=== PATIENT | male | born 1945 | race Caucasian/White ===

== ENCOUNTER 2016-05-18 18:22 | Inpatient (IN) ==
[2016-05-18 19:02] LABS: Eosinophils % 0.5 % (0.00-10.9); Hematocrit 24.4 VOL% (42.0-52.0); Hemoglobin 8.3 GM/DL (14.0-18.0); Immature Granulocytes % 1.9 %; Immature Granulocytes Absolute 0.08 #; Lymphocytes # 1.9 10*3/uL (1.4-4.0); Lymphocytes % 45.3 % (21.2-54.2); Mean Corpuscular Hemoglobin 33 PG (27-34); Mean Corpuscular Volume 96.4 FL (87-102); Mean Platelet Volume 9.2 FL (9.6-12.0); Monocytes % 24.8 % (1.7-12.7); Neutrophils # 1.1 10*3/uL (1.4-7.4); Neutrophils % 27.5 % (38.7-73.9); Platelet Count 47 T/CUMM (130-400); Red Blood Count 2.53 MC/CUMM (3.8-5.5); Red Cell Distribution Width 14.7 % (9.3-17.3); White Blood Count 4.1 T/CUMM (4-12)
--- NOTE | 2016-05-18 19:18 | XRay Report ---
XR chest 2V Indication: Shortness of breath. Chest 2 views: Comparison 05/10/2016. Pleural-parenchymal scarring at the left pulmonary apex, expansile changes in the posterior left fourth rib, scarring at the base of the left lung, generally clear right lung and normal heart size are all stable and no new infiltrates are identified. Impression: No significant change from 05/10/2016. Chronic scarring left upper lobe with expansile changes left posterior fourth rib. PROCEDURE INTERPRETED AT [facility] DEPARTMENT OF RADIOLOGY Final Report Signed by: Wayne Puga M.D.
[2016-05-18 19:22] LABS: Albumin 2.8 G/DL (3.4-5.0); Bilirubin,Total 0.4 MG/DL (0.2-1.0); Calcium 8.3 MG/DL (8.5-10.1); Osmolality,Calculated 291.4 MOS/KG (273-304); Total Protein 5.6 G/DL (6.4-8.3)
[2016-05-18 19:27] LABS: Troponin I Only 0.067 NG/ML (0.00-0.045)
[2016-05-18 20:08] LABS: Apearance,Urine CLEAR (Clear); Bacteria,Urine Occasional /HPF (Few); Bilirubin,Urine Negative (Negative); Blood, Urine Large mg/dL (Negative); Glucose,Urine (UA) Negative (Negative); Ketones,Urine Negative (Negative); Nitrite,Urine Negative (Negative); Protein,Urine 100 MG/DL; RBC,Urine 242 /HPF (0-4); Urine Color Yellow (Yellow); Urine Specific Gravity 1.013 (1.001-1.035); Urine Urobilinogen < 2.0 EU/DL (0.2-1.0); WBC,Urine 3 /HPF (0-6)
[2016-05-18] MEDS ORDERED: chlorproMAZINE INJ 50 MG in SODIUM CHLORIDE 0.9% 100 ML IV PRN (20:11)
[2016-05-18] MEDS ORDERED: MYLANTA/LIDO VISC 2:1 300 ML BOTTLE SWISH/SPIT PRN (20:11)
[2016-05-18] MEDS ORDERED: ACETAMINOPHEN 325 MG TABLET PO PRN (20:11)
[2016-05-18] MEDS ORDERED: ALUMINUM/MAGNES/SIMETH MAX STR 30 ML UDCUP PO PRN (20:11)
[2016-05-18] MEDS ORDERED: traMADol 50 MG TABLET PO PRN (20:11)
[2016-05-18] MEDS ORDERED: TEMAZEPAM 7.5 MG CAPSULE PO PRN (20:11)
[2016-05-18] MEDS ORDERED: PROMETHAZINE INJ 25 MG in SODIUM CHLORIDE 0.9% 50 ML IV PRN (20:11)
[2016-05-18] MEDS ORDERED: LACTULOSE 20 GM/30 ML UDCUP PO PRN (20:11)
[2016-05-18] MEDS ORDERED: chlorproMAZINE INJ 25 MG in SODIUM CHLORIDE 0.9% 100 ML IV PRN (20:11)
[2016-05-18] MEDS ORDERED: diphenhydrAMINE CAP 25 MG CAPSULE PO PRN (20:11)
[2016-05-18] MEDS ORDERED: chlorproMAZINE 25 MG TABLET PO PRN (20:11)
[2016-05-18] MEDS ORDERED: ALPRAZolam 0.25 MG TABLET PO PRN (20:11)
[2016-05-18] MEDS ORDERED: BENZTROPINE 2 MG/2 ML AMP IV PRN (20:11)
[2016-05-18] MEDS ORDERED: guaiFENesin 200 MG/10 ML UDCUP PO PRN (20:11)
[2016-05-18] MEDS ORDERED: MAGNESIUM HYDROXIDE SUSP 30 ML UDCUP PO PRN (20:11)
[2016-05-18] MEDS ORDERED: MYLANTA/LIDO VISC 2:1 300 ML BOTTLE SWISH/SWAL PRN (20:11)
[2016-05-18] MEDS ORDERED: LOPERAMIDE 2 MG CAPSULE PO PRN ×2 (20:11)
--- NOTE | 2016-05-18 20:11 | Emergency Department Note ---
Wilmar Vigil Brittany, am scribing for, and in the presence of, Lam Romero MD 18:56. Nick Vigil Doug C, MD, personally performed the services described in this documentation, ascribed by Cecy Urabn in my presence, and it is both accurate and complete . Arrival - Arrival Chief Complaint: Shortness of Breath Stated Complaint: SOB ED Nursing Triage Note: Pt c/o SOB, Chills, and lower ext swelling x 1 wk. Pt denies cough and was seen here last wk for same complaint. Mode of Arrival: Wheelchair Limitations: No Limitations Source: Patient, RN Notes Reviewed Time Seen by Provider: 05/18/16 18:53 - History of Present Illness HPI Narrative: Patient is a 71-year-old white male who presents emergency room complaining of increasing shortness of breath for the last 2 weeks. Patient states this really started after he received a transfusion and some IV fluid while here in the hospital. He has been short of breath ever since. Patient denies any chest pain or palpitations but is having dyspnea on exertion. He states he has a cough but it is nonproductive and is not had any fever associated with it. He does have a history of multiple myeloma and thyroid cancer. Has not had any hemoptysis or wheezing. He denies any pain in his neck shoulders or arms. Allergies/Adverse Reactions: Allergies Allergy/AdvReac Type Severity Reaction Status Date / Time No Known Allergies Allergy Verified 09/05/14 10:41 Home Medications: Home Medications Medication Instructions Recorded Confirmed Type Aspirin [Ecotrin] 81 mg PO DAILY 09/05/14 05/18/16 History Calcium Carbonate/Vitamin D3 1 each PO DAILY 09/05/14 05/18/16 History [Os-Natanael 500+D3 Caplet] Dexamethasone [Dexamethasone Tab] 4 mg PO DAILY PRN 09/05/14 05/18/16 History HYDROcodone/ACETAMIN 10-325 [[place] 1 tablet PO Q4H PRN 09/05/14 05/18/16 History 10-325] Insulin Lispro [HumaLOG] 2 unit SUBCUT ACHS PRN 09/05/14 05/18/16 History Levothyroxine Sodium 200 mcg PO DAILY 09/05/14 05/18/16 History Lisinopril/Hydrochlorothiazide 1 each PO DAILY 09/05/14 05/18/16 History [Lisinopril-Hctz 10-12.5 mg Tab] Saxagliptin HCl/Metformin HCl 1 each PO BID W/MEALS 09/05/14 05/18/16 History [Kombiglyze Xr 2.5-1,000 mg Tab] Tamsulosin [Flomax] 0.4 mg PO DAILY 09/05/14 05/18/16 History glyBURIDE [Diabeta] 10 mg PO BID W/MEALS 09/05/14 05/18/16 History Furosemide Tab [Lasix Tab] 20 mg PO DAILY #10 tablet 05/11/16 05/18/16 Rx Review of System - Review of System 12 point system: reviewed and no additional remarkable complaints except as stated - Review of System Constitutional: Absent: chills, fever Eyes: Absent: vision change Head/Ears/Nose/Throat: Absent: nasal drainage, sore throat Respiratory: Present: respiratory distress Cardiovascular: Absent: chest pain, palpitations Gastrointestinal: Absent: abdominal pain, nausea, vomiting, diarrhea, constipation Genitourinary male: Absent: urgency, dysuria, frequency Musculoskeletal: Absent: arm pain, back pain, leg pain, neck pain Skin: Absent: rash Neurological: Absent: headache Psychiatric: Absent: anxiety, depression Hematological/Lymphatic: Absent: easy bleeding, easy bruising Medical,Surgical,& Family Hx - Medical History Cardio: History of: Hypertension Neurology: No history of: Seizures HEENT: History of: Oral Cancer (thyroid ca) Endocrine: History of: Diabetes Mellitus (IDDM) Rheumatology: History of;: Rheumatoid Arthritis Genitourinary: History of: Prostate Problems (takes flomax) Gastrointestinal: History of: GI Problems (hernia repair) - Surgical History Cardiac Surgeries: Patient Denies: Femoral-Popliteal Bypass Graft, Cardiac Catheterization, Cardiac Surgery, Carotid Endarterectomy, Internal Defibrillator, Vascular Access Devices Neurologic Surgeries: Patient denies: Neurologic Surgery HEENT Surgeries: Patient denies: Carotid Endarterectomy, Thyroid Surgery Abdominal Surgeries: Surgical HX of: Abdominal Surgery (hernia repair X2) Patient denies: Splenectomy - Family History Family History: Reports;: Family Cancer (2 brothers prostate ca) - Social History Smoking Status: Never smoker Exam Vital Signs: Vital Signs Temperature 98.2 F 05/18/16 19:42 Pulse Rate 91 H 05/18/16 19:59 Respiratory Rate 20 05/18/16 19:59 Blood Pressure 137/69 05/18/16 19:59 O2 Sat by Pulse Oximetry 99 05/18/16 19:59 - General General appearance: alert, in no apparent distress - Head Head exam: Present: atraumatic, normocephalic, normal inspection - Eye Eye exam: Present: normal appearance, PERRL, EOMI - ENT ENT exam: Present: normal exam, normal oropharynx, mucous membranes moist - Neck Neck exam: Present: full ROM, trachea midline. Absent: normal inspection ( signs of radiation to the neck) - Chest Chest inspection: Present: normal inspection, symmetric chest wall rise - Respiratory Respiratory exam: Present: normal lung sounds bilaterally. Absent: rales, rhonchi, wheezes - Cardiovascular Cardiovascular exam: Present: regular rate, normal rhythm, normal heart sounds. Absent: murmur, rubs, gallop - Abdominal Exam Abdominal exam: Present: soft, normal bowel sounds. Absent: distention, tenderness - Extremities Exam Extremities exam: Present: normal inspection - Back Exam Back exam: Present: normal inspection - Neurological Exam Neurological exam: Present: alert, oriented X3, CN II-XII intact. Absent: motor sensory deficit - Psychiatric Psychiatric exam: Present: normal affect - Skin Skin exam: Present: warm, dry Course Course Narrative: Patient's clinical presentation, laboratory and radiographic findings were discussed with Dr. Sherman who will review these with Dr. Díaz. Results - Labs CBC & BMP: 05/18/16 18:51 05/18/16 18:51 Lab Results: I have reviewed the patients labs Labs: Laboratory Tests 05/18/16 18:51 WBC 4.1 RBC 2.53 L Hgb 8.3 L Hct 24.4 L MCV 96.4 MCH 33 MCHC 34.0 RDW 14.7 Plt Count 47 L MPV 9.2 L Neut % (Auto) 27.5 L Lymph % (Auto) 45.3 [place] % (Auto) 24.8 H Eos % (Auto) 0.5 Baso % (Auto) 0.0 Neut # (Auto) 1.1 L Lymph # (Auto) 1.9 [place] # (Auto) 1.0 H Eos # (Auto) 0.0 Baso # (Auto) 0.0 Immature Gran % 1.9 Nucleated RBC % 0.0 Immature Gran # 0.08 Nucleated RBCs # 0.00 - Diagnostic Findings Procedure: Chest x-ray: report reviewed by me (No significant change from . Chronic scarring left upper lobe with expansile changes left posterior fourth rib.) Disposition Clinical Impression: Symptomatic anemia Case discussed with: patient Disposition: Disch To Home/Self Care Condition: Stable Time of Disposition: 20:11
[2016-05-18] MEDS ORDERED: SODIUM CHLORIDE 0.9% 250 ML IV PRN (20:14)
[2016-05-18] MEDS: SODIUM CHLORIDE 0.9% 1,000 ML IV SCH (21:00)
[2016-05-18 21:09] LABS: Band Neutrophils 2 % (0-10); Lymphocytes 59 % (20-55); Segmented Neutrophils 36 % (50-85); Total Cells Counted 100
[2016-05-18 21:09] LABS: Magnesium 1.9 MG/DL (1.8-2.4); Uric Acid 10.6 MG/DL (3.5-7.2)
[2016-05-19] MEDS: FUROSEMIDE 20 MG/2 ML VIAL IV PRN ×2 (01:00→06:44)
--- NOTE | 2016-05-19 09:50 | EKG Report ---
Stationary ECG Study [facility] ER Test Date: 05/18/2016 6:39:24 PM Pat Name: MARIA A DASH Department: Room: 425 Gender: M Respiratory Tech: JOSE M : 1945 Requested by: Seven Castorena Order Number: [id number] Reading MD: CALEB RENO Intervals [place] Rate: 90 P: 67 FL: 198 QRS: 64 QRSD: 98 T: 83 QT: 349 QTc: 397 Interpretive Statements SINUS RHYTHM Electronically Signed On 05-20-16 16:41:21 CDT by CALEB RENO [email or web address]
[2016-05-19] MEDS: PANTOPRAZOLE 40 MG TABLET PO SCH (09:53)
[2016-05-19 11:01] LABS: Apearance,Urine CLEAR (Clear); Bilirubin,Urine Negative (Negative); Blood, Urine Large mg/dL (Negative); Glucose,Urine (UA) Negative (Negative); Ketones,Urine Negative (Negative); Mucus,Urine Occasional /LPF (Occasional); Nitrite,Urine Negative (Negative); Protein,Urine 30 MG/DL; RBC,Urine 77 /HPF (0-4); Squamous Epithelial Cell,Urine Occasional /HPF (0-10); Urine Color Straw (Yellow); Urine Specific Gravity 1.006 (1.001-1.035); Urine Urobilinogen < 2.0 EU/DL (0.2-1.0); WBC,Urine 4 /HPF (0-6)
[2016-05-19 11:09] LABS: Eosinophils % 0.4 % (0.00-10.9); Immature Granulocytes % 2.2 %; Lymphocytes # 1.9 10*3/uL (1.4-4.0); Lymphocytes % 41.8 % (21.2-54.2); Mean Corpuscular HGB Conc 33.3 GM/DL (32-36); Mean Corpuscular Hemoglobin 32 PG (27-34); Mean Corpuscular Volume 96.5 FL (87-102); Mean Platelet Volume 9.7 FL (9.6-12.0); Monocytes # 1.5 10*3/uL (0.11-0.8); Monocytes % 32.9 % (1.7-12.7); Neutrophils # 1.1 10*3/uL (1.4-7.4); Neutrophils % 22.7 % (38.7-73.9); Red Blood Count 3.11 MC/CUMM (3.8-5.5); Red Cell Distribution Width 15.5 % (9.3-17.3); White Blood Count 4.6 T/CUMM (4-12)
[2016-05-19 11:10] LABS: Platelet Count 44 T/CUMM (130-400)
--- NOTE | 2016-05-19 11:20 | Oncology Progress Note ---
Oncology Subjective PN Interval history: Patient admitted with anemia. Very complicated medical history of recurrent thyroid cancer and lambda light chain multiple myeloma. He is stable overnight with 2 units of red blood cells and an appropriate incremental increase in his hemoglobin. He denies any signs of bleeding. His lungs are clear on bilateral auscultation. Creatinine is noted at 3.0 which is unchanged when compared to May 07. Question any obstructive symptoms or need for renal ultrasound? We will move to room 430 for tomorrow's planned I-131 ablation Exam - Constitutional Vitals: Period Temp Pulse Resp BP Sys/Sommer Pulse Ox Last 24 Hr 88 F-98.7 F 86-108 16-20 93-139/47-95 97-98 Results - Labs CBC & BMP: 05/19/16 10:35 05/18/16 18:51
[2016-05-19 11:34] LABS: Band Neutrophils 2 % (0-10); Hypochromasia 1+; Lymphocytes 71 % (20-55); Ovalocytes Slight; Platelet Estimate Decreased; Segmented Neutrophils 22 % (50-85); Total Cells Counted 100
--- NOTE | 2016-05-20 07:16 | Oncology History&Physical ---
History of Present Illness History of present illness: Mr. Toribio is a 71 year old male with a history of lambda light chain disease with his most recent lambda free light chain level being 1079. He also has a history of metastatic thyroid cancer. Evidently this patient is also due a radioactive iodine treatment today. I have discussed his case with Dr. David Gastelum and was under the impression that the radioactive isotope that was going to be used would not be I-131. The phone system is down at my office. In addition, the fax machine here is broken. It is just been replaced. The electronic medical record system is not working and I cannot provide details of this patient's illness with this reason. I am going down the physical examination on this patient and I will fill in the rest of this later. System restored. He has had IgG lambda myeloma since June 28, 2013. 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 This is still clearly present on x-rays and was mentioned in x-ray reports during this hospital stay. Protein studies done May 02, 2016 included an M spike of 0.3 g/dL or 5.7% with an IgG level of 422. His kappa free light chain level was normal and his lambda free light chain level was 1079, having risen significantly in the last month. It was 662 mg/dL compared with 2016. His last dose of Zometa was March 12, 2016. I have just recently resumed chemotherapy on the patient using Velcade 2 mg IV and dexamethasone 40 mg IV weekly. He has not had parenteral chemotherapy for about 8 months. I am considering the addition of Adriamycin or Cytoxan at some point but not until after he has had his radioactive iodine therapy. Thyroid carcinoma: He has recurrence and progression of poorly differentiated thyroid carcinoma and recently saw Dr. David Gastelum who arranged for this radioactive iodine treatment which is his second 1. Past medical history: Allergies: No known allergies. Family history is negative for malignancies. Positive for diabetes mellitus in his grandfather and some type of blood disease in his mother Social history: He has never smoked cigarettes or used alcohol. Positive review of systems includes: Constitutional: Positive for fatigue and generalized weakness as well as weight loss. ENT review of systems is negative for significant disease. This excludes the thyroid cancer course. Pulmonary: Negative for asthma, emphysema or pneumonia, pleurisy or hemoptysis. Cardiovascular: Negative for coronary artery disease, chest pain, syncope or arrhythmias. GI: Negative for upper or lower GI bleeding, peptic ulcer disease, pancreatitis , liver disease, gallbladder disease or GI malignancies. : Positive for dysuria and the patient takes Flonase for this. He apparently has BPH. Musculoskeletal: Positive for muscle weakness and also positive for neck stiffness. Hematologic: Positive for cytopenias of all types including anemia and leukopenia. Neurologic: Positive for seizures, convulsions or paralysis. Physical examination: General: The patient is chronically ill-appearing but actually in no acute distress. Eyes: Normal lids and conjunctivae. ENT: His voice is clear and his trachea is midline. Oral mucosa is normal. His hearing is normal. Neck: He has several stony hard masses overlying the sternocleidomastoid and both the anterior and posterior cervical node system. His thyroid appears normal. Lungs: Breath sounds are normal without rubs, rales or rhonchi. There is symmetrical unlabored chest motion with respiration. Cardiovascular: His heart rhythm is regular without murmur, gallop or rub. There is no jugular venous distention, clubbing, cyanosis or edema. Abdomen: There are no abdominal masses, organomegaly, distention, tenderness or ascites. Musculoskeletal: There is no focal muscle atrophy or bone or joint deformity. Neurologic: Cranial nerves II through XII are intact. There are no focal neurologic deficits. Nodes: He has multiple large stony hard masses in the right cervical region as described under neck. Skin: No obvious skin lesions or rashes. Impression: #1: Recurrent metastatic thyroid carcinoma, poorly differentiated. #2: Light chain myeloma undergoing treatment #3: The patient is anemic and it is probably contributing to his dyspnea. #4: Chronic renal failure secondary to myeloma. We will proceed with radioactive iodine therapy. We are holding treatment of his myeloma for now. We will pick it back up later. Lab work today includes a white cell count of 4600 with a hemoglobin 10.0 and a platelet count of 44,000. The patient's platelet count has been low for some time. In addition, his hematocrit was 3.0 on admission. Home Medications Medication Instructions Recorded Confirmed Type Aspirin [Ecotrin] 81 mg PO DAILY 09/05/14 05/18/16 History Calcium Carbonate/Vitamin D3 1 each PO DAILY 09/05/14 05/18/16 History [Os-Natanael 500+D3 Caplet] Dexamethasone [Dexamethasone Tab] 4 mg PO DAILY PRN 09/05/14 05/18/16 History HYDROcodone/ACETAMIN 10-325 [[place] 1 tablet PO Q4H PRN 09/05/14 05/18/16 History 10-325] Insulin Lispro [HumaLOG] 2 unit SUBCUT ACHS PRN 09/05/14 05/18/16 History Levothyroxine Sodium 200 mcg PO DAILY 09/05/14 05/18/16 History Lisinopril/Hydrochlorothiazide 1 each PO DAILY 09/05/14 05/18/16 History [Lisinopril-Hctz 10-12.5 mg Tab] Saxagliptin HCl/Metformin HCl 1 each PO BID W/MEALS 09/05/14 05/18/16 History [Kombiglyze Xr 2.5-1,000 mg Tab] Tamsulosin [Flomax] 0.4 mg PO DAILY 09/05/14 05/18/16 History glyBURIDE [Diabeta] 10 mg PO BID W/MEALS 09/05/14 05/18/16 History Furosemide Tab [Lasix Tab] 20 mg PO DAILY #10 tablet 05/11/16 05/18/16 Rx Allergies Allergy/AdvReac Type Severity Reaction Status Date / Time No Known Allergies Allergy Verified 09/05/14 10:41 Medical,Surgical,& Family Hx - Medical History Cardio: History of: Hypertension Neurology: No history of: Seizures HEENT: History of: Oral Cancer (thyroid ca) Endocrine: History of: Diabetes Mellitus (IDDM) Rheumatology: History of;: Rheumatoid Arthritis Genitourinary: History of: Prostate Problems (takes flomax) Gastrointestinal: History of: GI Problems (hernia repair) Other: History of: Cancer (multiple myeloma, thyroid CA) - Surgical History Cardiac Surgeries: Patient Denies: Femoral-Popliteal Bypass Graft, Cardiac Catheterization, Cardiac Surgery, Carotid Endarterectomy, Internal Defibrillator, Vascular Access Devices Neurologic Surgeries: Patient denies: Neurologic Surgery HEENT Surgeries: Patient denies: Carotid Endarterectomy, Thyroid Surgery Abdominal Surgeries: Surgical HX of: Abdominal Surgery (hernia repair X2) Patient denies: Splenectomy - Family History Family History: Reports;: Family Cancer (2 brothers prostate ca) - Social History Smoking Status: Never smoker Frequency of Alcohol Use: None Type of Drug Use: None Exam - Constitutional Vitals: Period Temp Pulse Resp BP Sys/Sommer Pulse Ox Last 24 Hr 97.4 F-99.0 F 84-99 16-21 97-131/45-65 96-100 Results - Labs CBC & BMP: 05/19/16 10:35 05/18/16 18:51
[2016-05-20] MEDS: SODIUM CHLORIDE 0.9% 1,000 ML IV SCH (08:54)
[2016-05-20] MEDS: TAMSULOSIN 0.4 MG CAPSULE PO SCH (09:17)
[2016-05-20] MEDS: PANTOPRAZOLE 40 MG TABLET PO SCH (09:17)
[2016-05-21 05:40] LABS: Basophils % 0.2 % (0.0-0.8); Eosinophils % 0.2 % (0.00-10.9); Hematocrit 28.2 VOL% (42.0-52.0); Hemoglobin 9.2 GM/DL (14.0-18.0); Immature Granulocytes % 1.6 %; Immature Granulocytes Absolute 0.07 #; Lymphocytes # 1.7 10*3/uL (1.4-4.0); Lymphocytes % 40.5 % (21.2-54.2); Mean Corpuscular HGB Conc 32.6 GM/DL (32-36); Mean Corpuscular Hemoglobin 31 PG (27-34); Mean Corpuscular Volume 95.9 FL (87-102); Mean Platelet Volume 9.6 FL (9.6-12.0); Monocytes # 1.6 10*3/uL (0.11-0.8); Monocytes % 36.5 % (1.7-12.7); Neutrophils # 0.9 10*3/uL (1.4-7.4); Red Blood Count 2.94 MC/CUMM (3.8-5.5); Red Cell Distribution Width 15.2 % (9.3-17.3); White Blood Count 4.3 T/CUMM (4-12)
[2016-05-21 05:50] LABS: Platelet Count 41 T/CUMM (130-400)
[2016-05-21 06:12] LABS: Band Neutrophils 1 % (0-10); Lymphocytes 78 % (20-55); Segmented Neutrophils 18 % (50-85); Total Cells Counted 100
[2016-05-21 06:13] LABS: Atypical Lymphocytes Few; Hypochromasia 1+; Ovalocytes Slight; Platelet Estimate Decreased
[2016-05-21 06:18] LABS: Albumin 2.3 G/DL (3.4-5.0); Bilirubin,Total 0.8 MG/DL (0.2-1.0); Osmolality,Calculated 291.3 MOS/KG (273-304); Potassium 3.8 MMOL/L (3.5-5.1)
--- NOTE | 2016-05-21 07:17 | Oncology Progress Note ---
Oncology Subjective PN Interval history: Radioactive iodine treatment is on hold because patient has urinary retention and is feeling bad. Case discussed with Dr. Jose Romero. We will address the urinary retention before proceeding with radioactive iodine therapy. The patient has underlying myeloma as well as metastatic thyroid cancer. Exam - Constitutional Vitals: Period Temp Pulse Resp BP Sys/Sommer Pulse Ox Last 24 Hr 96.5 F-98.7 F 85-94 18-20 103-126/53-60 95-98 Results - Labs CBC & BMP: 05/21/16 05:09 05/21/16 05:09
--- NOTE | 2016-05-21 08:38 | Urology Consultation ---
Assessment and Plan - Time spent with patient Time spent with patient: Greater than 30 minutes (1) Prostate cancer Status: Acute Assessment and plan: Patient needs to be restaged but this is not the time to do that. I will get the records from Dr. Rodriguez. He apparently got lost to follow-up. Patient tells me that surgery was recommended but that was few years ago. Current Visit: Yes (2) Urinary retention Status: Acute Assessment and plan: He is on Flomax. They are cathing as needed. He is constipated we will clear that up and it should improve. Current Visit: Yes History of Present Illness - Data of Consult Patient: new to practice Consult date: 05/21/16 Requesting Physician: Wayne Ingram - Consult Narrative Reason for consult: Urinary retention History of present illness: Mr. Toribio is a 71 year old male who has multiple problems. He apparently has 3 distinct cancers. He is being admitted for radioactive thyroid treatment. But he also has multiple myeloma. After talking to him for 15-20 minutes he tells me history of having prostate cancer he apparently was diagnosed 5 years ago. This was a small volume cancer and I think he was on active surveillance. This progressed to the point where it was recommended for surgery but he did want to pursue that and then got lost to follow-up. The reason why I was asked to see difficulty urinating. He is constipated which obviously can contribute to that. He has been cath a few times a residuals a running 4-500 cc. I started Flomax last night and he is voiding somewhat better. But we need to improve the constipation. I will have the nurses give him Chronulac twice daily on schedule until he has a bowel movement. And this should improve. He needs to be restaged from prostate cancer standpoint. I am not going to order a PSA at this point because he has been catheterized and that will give us a false reading so we are going to wait and restage him at a later date. I will request the records from Dr. Beka Rodriguez. CC: Wayne Ingram MD - Home Medications and Allergies Home Medications: Home Medications Medication Instructions Recorded Confirmed Type Aspirin [Ecotrin] 81 mg PO DAILY 09/05/14 05/18/16 History Calcium Carbonate/Vitamin D3 1 each PO DAILY 09/05/14 05/18/16 History [Os-Natanael 500+D3 Caplet] Dexamethasone [Dexamethasone Tab] 4 mg PO DAILY PRN 09/05/14 05/18/16 History HYDROcodone/ACETAMIN 10-325 [[place] 1 tablet PO Q4H PRN 09/05/14 05/18/16 History 10-325] Insulin Lispro [HumaLOG] 2 unit SUBCUT ACHS PRN 09/05/14 05/18/16 History Levothyroxine Sodium 200 mcg PO DAILY 09/05/14 05/18/16 History Lisinopril/Hydrochlorothiazide 1 each PO DAILY 09/05/14 05/18/16 History [Lisinopril-Hctz 10-12.5 mg Tab] Saxagliptin HCl/Metformin HCl 1 each PO BID W/MEALS 09/05/14 05/18/16 History [Kombiglyze Xr 2.5-1,000 mg Tab] Tamsulosin [Flomax] 0.4 mg PO DAILY 09/05/14 05/18/16 History glyBURIDE [Diabeta] 10 mg PO BID W/MEALS 09/05/14 05/18/16 History Furosemide Tab [Lasix Tab] 20 mg PO DAILY #10 tablet 05/11/16 05/18/16 Rx Allergies/Adverse Reactions: Allergies Allergy/AdvReac Type Severity Reaction Status Date / Time No Known Allergies Allergy Verified 09/05/14 10:41 - Genitourinary Genitourinary: Present: difficulty urinating, dysuria, nocturia, urinary frequency. Absent: flank pain, hematuria, scrotal swelling, testicular mass, urinary incontinence Exam - Constitutional Vitals: Period Temp Pulse Resp BP Sys/Sommer Pulse Ox Last 24 Hr 98.0 F-98.7 F 87-94 18-20 103-122/53-56 95-98 - GI/Abdominal GI/Abdominal exam: Present: soft. Absent: distended, firm, guarding, tenderness , rebound - Genitourinary Genitourinary: scrotum without lesions, cysts, edema or rash, penis with no lesions or discharge, diffusely enlarged prostate without tenderness Results - Labs CBC & BMP: 05/21/16 05:09 05/21/16 05:09 Lab Results: I have reviewed the past 24 hour labs
[2016-05-21] MEDS: TAMSULOSIN 0.4 MG CAPSULE PO SCH (09:27)
[2016-05-21] MEDS: PANTOPRAZOLE 40 MG TABLET PO SCH (09:27)
[2016-05-21] MEDS: LACTULOSE 20 GM/30 ML UDCUP PO SCH ×2 (09:29→20:46)
[2016-05-21] MEDS: SODIUM CHLORIDE 0.9% 1,000 ML IV SCH ×3 (14:18→20:48)
[2016-05-22 05:34] LABS: Eosinophils % 0.2 % (0.00-10.9); Hemoglobin 9.3 GM/DL (14.0-18.0); Immature Granulocytes % 0.9 %; Immature Granulocytes Absolute 0.04 #; Lymphocytes % 45.2 % (21.2-54.2); Mean Corpuscular HGB Conc 33.2 GM/DL (32-36); Mean Corpuscular Hemoglobin 32 PG (27-34); Mean Corpuscular Volume 96.6 FL (87-102); Mean Platelet Volume 9.5 FL (9.6-12.0); Monocytes # 1.4 10*3/uL (0.11-0.8); Monocytes % 32.9 % (1.7-12.7); Neutrophils # 0.9 10*3/uL (1.4-7.4); Neutrophils % 20.8 % (38.7-73.9); Red Cell Distribution Width 15.1 % (9.3-17.3); White Blood Count 4.3 T/CUMM (4-12)
[2016-05-22 05:41] LABS: Platelet Count 33 T/CUMM (130-400)
[2016-05-22 05:57] LABS: Band Neutrophils 6 % (0-10); Elliptocytes Few; Eosinophils 1 % (0-10); Hypochromasia 1+; Lymphocytes 69 % (20-55); Platelet Estimate Decreased; Segmented Neutrophils 21 % (50-85); Total Cells Counted 100
[2016-05-22 05:58] LABS: Atypical Lymphocytes Few; Burr Cells Slight
[2016-05-22 06:12] LABS: Albumin 2.4 G/DL (3.4-5.0); Calcium 7.8 MG/DL (8.5-10.1); Osmolality,Calculated 289.4 MOS/KG (273-304); Potassium 3.5 MMOL/L (3.5-5.1)
--- NOTE | 2016-05-22 08:21 | Oncology Progress Note ---
Oncology Subjective PN Interval history: Patient with myeloma and metastatic thyroid cancer admitted with increasing pain. The patient was actually supposed to be receiving radioactive iodine therapy but we had to hold it because of urinary retention. I would like to go ahead and place a South catheter and get him treated with radioactive iodine. His blood work today includes a white cell count of 4300 with a hemoglobin of 9.3 and his platelet count is only 33,000. We have to have adequate drainage of his bladder for him to receive radioactive iodine. He has a large right neck mass that has been documented to be recurrent thyroid cancer. He has been off thyroid supplements for about 2 months. Exam - Constitutional Vitals: Period Temp Pulse Resp BP Sys/Sommer Pulse Ox Last 24 Hr 96.2 F-98.9 F 83-99 18-99 104-119/52-59 96-98 Results - Labs CBC & BMP: 05/22/16 04:53 05/22/16 04:53
[2016-05-22] MEDS: TAMSULOSIN 0.4 MG CAPSULE PO SCH ×2 (08:48→20:26)
[2016-05-22] MEDS: PANTOPRAZOLE 40 MG TABLET PO SCH (08:48)
[2016-05-22] MEDS: LACTULOSE 20 GM/30 ML UDCUP PO SCH ×2 (08:48→20:30)
--- NOTE | 2016-05-22 10:32 | Urology Progress Note ---
Assessment and Plan (1) Prostate cancer Status: Acute Assessment and plan: Patient needs to be restaged but this is not the time to do that. I will get the records from Dr. Rodriguez. He apparently got lost to follow-up. Patient tells me that surgery was recommended but that was few years ago. Current Visit: Yes (2) Urinary retention Status: Acute Assessment and plan: He is on Flomax. They are cathing as needed. He is constipated we will clear that up and it should improve. Current Visit: Yes Urology - PN: Subj Interval history: Patient is voiding very little. Residuals are 4-500 cc. He is going to be treated with radioactive iodine. Instead of cathing him and exposing the nursing personnel and is self to potential more radiation I recommend we place a South catheter for short period of time. I will also double his Flomax dose. Records from Dr. Perez's office are pending. Again I would not do a PSA at this time because it will be artificially elevated from the cathing. Exam - Constitutional Vitals: Period Temp Pulse Resp BP Sys/Sommer Pulse Ox Last 24 Hr 96.2 F-98.9 F 89-99 18-99 104-125/52-59 96-98 Results - Labs CBC & BMP: 05/22/16 04:53 05/22/16 04:53
--- NOTE | 2016-05-22 12:01 | Nuclear Medicine Report ---
Exam: Nuclear medicine therapy for thyroid cancer Date: May 22, 2016 Reason: Thyroid cancer Comparison: Nuclear medicine thyroid cancer whole body study May 13, 2016 Procedure: The procedure as well as risks and benefits were explained to the patient, and informed consent was obtained. The patient was orally administered 181 mCi of iodine-131 for treatment of residual thyroid cancer. The patient was admitted to the hospital for monitoring and will be discharged once radiation levels have reached an acceptable level. Post procedure instructions were discussed with the patient. Impression: 181 mCi of iodine-131 was administered orally for treatment of thyroid cancer. PROCEDURE INTERPRETED AT [facility] DEPARTMENT OF RADIOLOGY Final Report Signed by: Dr. Jorge Jackson
[2016-05-22 14:15] LABS: Apearance,Urine CLEAR (Clear); Bacteria,Urine Few /HPF (Few); Bilirubin,Urine Negative (Negative); Blood, Urine Small mg/dL (Negative); Glucose,Urine (UA) Negative (Negative); Hyaline Casts,Urine 1 /LPF (0-3); Ketones,Urine Negative (Negative); Nitrite,Urine Negative (Negative); Protein,Urine 100 MG/DL; RBC,Urine <1 /HPF (0-4); Urine Color Yellow (Yellow); Urine Specific Gravity 1.012 (1.001-1.035); Urine Urobilinogen < 2.0 EU/DL (0.2-1.0); WBC,Urine 1 /HPF (0-6)
[2016-05-22] MEDS: ONDANSETRON 4 MG/2 ML VIAL IV PRN (17:19)
[2016-05-22] MEDS: SODIUM CHLORIDE 0.9% 1,000 ML IV SCH (20:27)
[2016-05-23 04:50] LABS: Eosinophils % 0.4 % (0.00-10.9); Hematocrit 25.2 VOL% (42.0-52.0); Hemoglobin 8.5 GM/DL (14.0-18.0); Immature Granulocytes % 0.9 %; Immature Granulocytes Absolute 0.02 #; Lymphocytes # 1.5 10*3/uL (1.4-4.0); Lymphocytes % 66.5 % (21.2-54.2); Mean Corpuscular HGB Conc 33.7 GM/DL (32-36); Mean Corpuscular Hemoglobin 32 PG (27-34); Mean Corpuscular Volume 93.7 FL (87-102); Monocytes # 0.1 10*3/uL (0.11-0.8); Neutrophils # 0.6 10*3/uL (1.4-7.4); Neutrophils % 28.2 % (38.7-73.9); Red Blood Count 2.69 MC/CUMM (3.8-5.5); Red Cell Distribution Width 15.2 % (9.3-17.3); White Blood Count 2.3 T/CUMM (4-12)
[2016-05-23 04:58] LABS: Platelet Count 20 T/CUMM (130-400)
[2016-05-23 05:42] LABS: Atypical Lymphocytes Few; Band Neutrophils 7 % (0-10); Hypochromasia 1+; Lymphocytes 72 % (20-55); Microcytosis 1+; Ovalocytes Slight; Platelet Estimate Decreased; Segmented Neutrophils 17 % (50-85); Total Cells Counted 100
[2016-05-23 05:50] LABS: Albumin 2.3 G/DL (3.4-5.0); Bilirubin,Total 0.8 MG/DL (0.2-1.0); Calcium 7.5 MG/DL (8.5-10.1); Osmolality,Calculated 286.7 MOS/KG (273-304); Potassium 4.2 MMOL/L (3.5-5.1); Total Protein 4.7 G/DL (6.4-8.3)
[2016-05-23] MEDS ORDERED: DEXAMETHASONE 4 MG TABLET PO PRN (06:47)
[2016-05-23] MEDS ORDERED: INSULIN LISPRO 100 UNIT/ML SUBCUT PRN (06:47)
--- NOTE | 2016-05-23 06:49 | Oncology Progress Note ---
Oncology Subjective PN Interval history: This patient was admitted with shortness of breath. He was admitted to outpatient observation but his problems have become progressively more complicated. He has myeloma. He has metastatic thyroid cancer. Dr. David Gastelum ordered radioactive iodine treatment on him and the patient was supposed to get it earlier this week. In fact he stayed because we were planning to give the radio active iodine. However, he has bladder outlet obstruction and a history of prostate cancer. Dr. Jose Romero is assisting in management with the patient because of bladder outlet obstruction and history of prostate cancer. Dr. Romero as agreed to placement of a South catheter for the time being until the patient finishes his radioactive iodine treatment which was started yesterday. Follow this is complicated in each issue is affecting the other in an adverse way. His blood work today includes a hemoglobin of 8.5 with a white cell count of 2300 and his platelet count is falling and is 20,000 today. In addition he has chronic renal failure with a serum creatinine of 2.9. Exam - Constitutional Vitals: Period Temp Pulse Resp BP Sys/Sommer Pulse Ox Last 24 Hr 97.2 F-99.2 F 87-104 16-20 102-125/50-59 96-100 Results - Labs CBC & BMP: 05/23/16 04:27 05/23/16 04:27
[2016-05-23 08:45] LABS: Immunoglobulin A < 31 MG/DL (70-400); Immunoglobulin G 347 MG/DL (700-1600); Immunoglobulin M < 21 MG/DL (40-230); Total Protein 4.5 G/DL (6.4-8.3)
--- NOTE | 2016-05-23 08:45 | Urology Progress Note ---
Assessment and Plan (1) Prostate cancer Status: Acute Assessment and plan: Patient needs to be restaged but this is not the time to do that. I will get the records from Dr. Rodriguez. He apparently got lost to follow-up. Patient tells me that surgery was recommended but that was few years ago. Current Visit: Yes (2) Urinary retention Status: Acute Assessment and plan: He is on Flomax. They are cathing as needed. He is constipated we will clear that up and it should improve. Current Visit: Yes Urology - PN: Subj Interval history: Patient is undergoing radioactive iodine treatment. We will leave the catheter until his counts go down. I have doubled his Flomax hopefully he will void. The records from [place] are pending. Exam - Constitutional Vitals: Period Temp Pulse Resp BP Sys/Sommer Pulse Ox Last 24 Hr 97.2 F-99.2 F 87-104 16-20 102-125/50-58 96-100 Results - Labs CBC & BMP: 05/23/16 04:27 05/23/16 04:27
[2016-05-23] MEDS: TAMSULOSIN 0.4 MG CAPSULE PO SCH ×3 (08:55→21:05)
[2016-05-23] MEDS: sitaGLIPtin 25 MG TABLET PO SCH (08:55)
[2016-05-23] MEDS: glyBURIDE 5 MG TABLET PO SCH ×2 (08:56→18:01)
[2016-05-23] MEDS: LEVOTHYROXINE 200 MCG TABLET PO SCH (08:56)
[2016-05-23] MEDS: PANTOPRAZOLE 40 MG TABLET PO SCH (08:56)
[2016-05-23] MEDS: ASPIRIN EC 81 MG TABLET PO SCH (08:56)
[2016-05-23] MEDS: LISINOPRIL/HCTZ 10-12.5 MG TABLET PO SCH (08:56)
[2016-05-23] MEDS: FUROSEMIDE 20 MG TABLET PO SCH (08:56)
[2016-05-23] MEDS: ONDANSETRON 4 MG/2 ML VIAL IV PRN (08:57)
[2016-05-23] MEDS: CALCIUM (CARBONATE)/VITAMIN D 500 MG-200 UNIT TABLET PO SCH (08:57)
[2016-05-23] MEDS: LACTULOSE 20 GM/30 ML UDCUP PO SCH ×2 (11:00→22:36)
--- NOTE | 2016-05-23 13:52 | Physician Query Form ---
CLICK EDIT DOCUMENT TO SELECT QUERY ANSWER --> OK --> SIGN Aranza Courtnye RN Clinical Hr Analyst W) [phone] (f) [phone] [email or web address] PROVIDERS: Make your selection(s) from the choices in EACH section by typing an "x" and enter comments in the comment section. Please use your independent medical judgment in providing your response. This request does not imply that any particular answer is desired or expected. CLINICAL INDICATORS: (Providers should not edit this section) Based on documentation of Creatinine form 3.10 to 2.90 GFR from 25 to 27. Treated with NS infusion. monitored with serial lab checks. Clarify which of the following most accurately represents the patient's renal status: ( ) Acute kidney injury (non-traumatic) ( ) Acute renal failure ( ) Acute renal failure with underlying Chronic Kidney Disease (CKD) - please provide stage below ( ) Acute renal failure with pathological renal lesion ( ) Acute renal failure with necrosis ( ) tubular ( ) medullary ( ) cortical ( ) CKD - please provide stage below ( ) End Stage Renal Disease ( ) Acute interstitial nephritis ( ) Hepatorenal syndrome ( ) Other, please specify: ( x) Clinically unable to determine Chronic Kidney Disease Stages Source: National Kidney Disease Foundation ( ) Stage I (eGFR > or = 90) ( ) Stage II (eGFR 60 - 89) ( ) Stage III (eGFR 30 - 59) ( ) Stage IV (eGFR 15 - 29) ( ) Stage V (eGFR < 15 or dialysis) COMMENTS: Use of terms such as suspected, likely, or probable (associated with a specific diagnosis that is being evaluated, monitored, or treated as if it exists) are acceptable and can be restated in the discharge summary if not ruled out. MTDD
--- NOTE | 2016-05-23 13:57 | Physician Query Form ---
CLICK EDIT DOCUMENT TO SELECT QUERY ANSWER --> OK --> SIGN Aranza Courtney RN Clinical Banking Representative W) [phone] (f) [phone] [email or web address] PROVIDERS: Make your selection(s) from the choices in EACH section by typing an "x" and enter comments in the comment section. Please use your independent medical judgment in providing your response. This request does not imply that any particular answer is desired or expected. CLINICAL INDICATORS: (Providers should not edit this section) Based on documentation of "Thyroid cancer, Multiple Myeloma" "Acute Prostate cancer" "I have just recently resumed chemotherapy on the patient using Velcade 2 mg IV and dexamethasone 40 mg IV weekly." WBC 2.3, RBC 2.69, PLT 20. Monitored with multiple lab checks. Based on the above, could you clarify the appropriate diagnosis, if significant , that supports the above abnormalities and additional evaluation, monitoring, and/or treatment rendered: ( ) Pancytopenia due to chemotherapy ( ) Pancytopenia NOT due to chemotherapy ( ) Does NOT have pancytopenia ( ) Other, please specify: ( ) Clinically unable to determine COMMENTS: Use of terms such as suspected, likely, or probable (associated with a specific diagnosis that is being evaluated, monitored, or treated as if it exists) are acceptable and can be restated in the discharge summary if not ruled out. MTDD
[2016-05-24] MEDS: SODIUM CHLORIDE 0.9% 1,000 ML IV SCH (01:20)
[2016-05-24 04:21] LABS: Eosinophils % 0.5 % (0.00-10.9); Hematocrit 23.9 VOL% (42.0-52.0); Hemoglobin 8.2 GM/DL (14.0-18.0); Immature Granulocytes % 1.9 %; Immature Granulocytes Absolute 0.04 #; Lymphocytes # 1.4 10*3/uL (1.4-4.0); Mean Corpuscular HGB Conc 34.3 GM/DL (32-36); Mean Corpuscular Hemoglobin 32 PG (27-34); Mean Corpuscular Volume 92.6 FL (87-102); Mean Platelet Volume 9.1 FL (9.6-12.0); Monocytes # 0.3 10*3/uL (0.11-0.8); Monocytes % 12.6 % (1.7-12.7); Neutrophils # 0.5 10*3/uL (1.4-7.4); Red Blood Count 2.58 MC/CUMM (3.8-5.5); White Blood Count 2.1 T/CUMM (4-12)
[2016-05-24 04:26] LABS: Platelet Count 19 T/CUMM (130-400)
[2016-05-24 04:48] LABS: Atypical Lymphocytes Few; Band Neutrophils 1 % (0-10); Hypochromasia 1+; Lymphocytes 64 % (20-55); Ovalocytes Slight; Platelet Estimate Decreased; Segmented Neutrophils 28 % (50-85); Total Cells Counted 100
[2016-05-24 04:49] LABS: Microcytosis 1+
[2016-05-24 04:56] LABS: Albumin 2.2 G/DL (3.4-5.0); Bilirubin,Total 1.1 MG/DL (0.2-1.0); Calcium 7.6 MG/DL (8.5-10.1); Osmolality,Calculated 281.4 MOS/KG (273-304); Potassium 3.5 MMOL/L (3.5-5.1); Total Protein 4.5 G/DL (6.4-8.3)
[2016-05-24 05:52] LABS: Immunoglobulin A (Chem) < 31 MG/DL (70-400); Immunoglobulin G (Chem) 347 MG/DL (700-1600); Immunoglobulin M (Chem) < 21 MG/DL (40-230); Total Protein (Chem) 4.5 G/DL (6.4-8.2)
[2016-05-24] MEDS: LEVOTHYROXINE 200 MCG TABLET PO SCH (06:22)
[2016-05-24 09:00] LABS: Albumin (SPE) 2.6 G/DL (3.2-5.3); Albumin (SPE) Rel % 58.5 %; Alpha 1 (SPE) 0.2 G/DL (0.1-0.4); Alpha 1 (SPE) Rel % 5.4 %; Alpha 2 (SPE) 0.6 G/DL (0.4-1.0); Alpha 2 (SPE) Rel % 12.5 %; Beta (SPE) 0.4 G/DL (0.5-1.1); Beta (SPE) Rel % 9.5 %; Gamma (SPE) 0.6 G/DL (0.7-1.7)
[2016-05-24 09:01] LABS: Gamma (SPE) Rel % 14.1 %
[2016-05-24] MEDS ORDERED: SODIUM CHLORIDE 0.9% 250 ML IV PRN (09:12)
--- NOTE | 2016-05-24 09:16 | Oncology Progress Note ---
Assessment and Plan (1) Multiple myeloma Status: Acute Current Visit: Yes (2) Thrombocytopenia Status: Acute Current Visit: Yes (3) Thyroid cancer Status: Acute Current Visit: Yes (4) Prostate cancer Status: Acute Current Visit: Yes Oncology Subjective PN Interval history: 8-year-old male with history of multiple myeloma and thyroid cancer currently admitted for radioactive iodine ablation. He received this 2 days ago. He is also had issues with bladder outlet obstruction and shortness of breath. Dr. Romero with urology has been evaluating his bladder outlet obstruction. His platelet count today has dropped down to 19. Since he has a South catheter in place I think it is kulkarni to give him a unit of blood before he developed significant hematuria. We will discontinue his aspirin. His blood glucose this morning was 54 so I will hold his diabetic medicines for now. His previous blood sugars have been over 200 so will be quick to restart them if needed. Exam - Constitutional Vitals: Period Temp Pulse Resp BP Sys/Sommer Pulse Ox Last 24 Hr 96.9 F-99.0 F 88-105 17-21 96-113/51-55 94-98 General appearance: normal weight, no acute distress - Head Head Exam: Present: normocephalic, atraumatic - Eye Eye Exam: Present: EOMI Pupils: Present: PERRL - ENT ENT exam: Present: normal exam, normal oropharynx - Neck Neck exam: Absent: lymphadenopathy, thyromegaly Results - Labs CBC & BMP: 05/24/16 03:07 05/24/16 03:07 Lab Results: I have reviewed the past 24 hour labs
[2016-05-24] MEDS: glyBURIDE 5 MG TABLET PO SCH (09:18)
[2016-05-24] MEDS: sitaGLIPtin 25 MG TABLET PO SCH (09:19)
[2016-05-24] MEDS: ASPIRIN EC 81 MG TABLET PO SCH (09:19)
[2016-05-24] MEDS: FUROSEMIDE 20 MG TABLET PO SCH (09:20)
[2016-05-24] MEDS: LISINOPRIL/HCTZ 10-12.5 MG TABLET PO SCH (09:20)
[2016-05-24] MEDS: TAMSULOSIN 0.4 MG CAPSULE PO SCH ×3 (09:21→20:30)
[2016-05-24] MEDS: LACTULOSE 20 GM/30 ML UDCUP PO SCH ×2 (09:21→20:30)
[2016-05-24] MEDS: CALCIUM (CARBONATE)/VITAMIN D 500 MG-200 UNIT TABLET PO SCH (09:21)
[2016-05-24] MEDS: PANTOPRAZOLE 40 MG TABLET PO SCH (09:22)
--- NOTE | 2016-05-24 09:27 | Urology Progress Note ---
Assessment and Plan (1) Prostate cancer Status: Acute Assessment and plan: Patient needs to be restaged but this is not the time to do that. I will get the records from Dr. Rodriguez. He apparently got lost to follow-up. Patient tells me that surgery was recommended but that was few years ago. Current Visit: Yes (2) Urinary retention Status: Acute Assessment and plan: He is on Flomax. They are cathing as needed. He is constipated we will clear that up and it should improve. Current Visit: Yes Urology - PN: Subj Interval history: Patient is stable. Urine is clear. Were waiting for his counts to drop. Today 's is 38 so he will be here for a few days. We will maintain the South until his counts are low then we will give him a voiding trial. Records from [place] are still pending. I will check back on Friday. Exam - Constitutional Vitals: Period Temp Pulse Resp BP Sys/Sommer Pulse Ox Last 24 Hr 96.9 F-99.0 F 88-105 17-21 96-113/51-55 94-98 Results - Labs CBC & BMP: 05/24/16 03:07 05/24/16 03:07
[2016-05-25 02:16] LABS: Eosinophils % 0.5 % (0.00-10.9); Hematocrit 23.9 VOL% (42.0-52.0); Immature Granulocytes % 4.3 %; Immature Granulocytes Absolute 0.08 #; Lymphocytes # 0.6 10*3/uL (1.4-4.0); Lymphocytes % 34.2 % (21.2-54.2); Mean Corpuscular HGB Conc 33.5 GM/DL (32-36); Mean Corpuscular Hemoglobin 32 PG (27-34); Mean Corpuscular Volume 94.5 FL (87-102); Mean Platelet Volume 9.8 FL (9.6-12.0); Monocytes # 0.8 10*3/uL (0.11-0.8); Neutrophils # 0.3 10*3/uL (1.4-7.4); Red Blood Count 2.53 MC/CUMM (3.8-5.5); Red Cell Distribution Width 14.9 % (9.3-17.3); White Blood Count 1.8 T/CUMM (4-12)
[2016-05-25 02:41] LABS: Calcium 7.4 MG/DL (8.5-10.1); Osmolality,Calculated 281.5 MOS/KG (273-304); Potassium 3.4 MMOL/L (3.5-5.1); Total Protein 4.5 G/DL (6.4-8.3)
[2016-05-25 03:18] LABS: Platelet Count 35 T/CUMM (130-400)
[2016-05-25 03:59] LABS: Band Neutrophils 3 % (0-10); Eosinophils 2 % (0-10); Lymphocytes 60 % (20-55); Metamyelocytes 2 %; Segmented Neutrophils 21 % (50-85); Total Cells Counted 100
[2016-05-25 04:00] LABS: Anisocytosis 1+; Atypical Lymphocytes Few; Hypochromasia Slight; Macrocytosis 1+; Ovalocytes 1+; Platelet Estimate Decreased
[2016-05-25] MEDS: LEVOTHYROXINE 200 MCG TABLET PO SCH (06:31)
[2016-05-25] MEDS: SODIUM CHLORIDE 0.9% 1,000 ML IV SCH (07:50)
[2016-05-25] MEDS: LACTULOSE 20 GM/30 ML UDCUP PO SCH ×3 (08:57→20:20)
[2016-05-25] MEDS: LISINOPRIL/HCTZ 10-12.5 MG TABLET PO SCH (08:58)
[2016-05-25] MEDS: TAMSULOSIN 0.4 MG CAPSULE PO SCH ×3 (08:58→20:18)
[2016-05-25] MEDS: PANTOPRAZOLE 40 MG TABLET PO SCH (08:58)
[2016-05-25] MEDS: CALCIUM (CARBONATE)/VITAMIN D 500 MG-200 UNIT TABLET PO SCH (08:58)
[2016-05-25] MEDS: FUROSEMIDE 20 MG TABLET PO SCH (08:58)
--- NOTE | 2016-05-25 10:20 | Oncology Progress Note ---
Assessment and Plan (1) Multiple myeloma Status: Acute Current Visit: Yes (2) Thrombocytopenia Status: Acute Current Visit: Yes (3) Thyroid cancer Status: Acute Current Visit: Yes (4) Prostate cancer Status: Acute Current Visit: Yes Oncology Subjective PN Interval history: Mr. Toribio feels about the same today. He received 1 unit of platelets yesterday. He requested no longer receive any further blood transfusion if at all possible right now. His hemoglobin level today is 8 we will hold off on transfusion per his request. His radiation admission levels today were still elevated at 27. He will most likely be here another 2 or 3 days for them to return to safe range for discharge. Urology plans to do some type of procedure on Friday so we may have to consider a platelet transfusion tomorrow in preparation for this. Exam - Constitutional Vitals: Period Temp Pulse Resp BP Sys/Sommer Pulse Ox Last 24 Hr 97.1 F-99 F 71-97 18-20 98-111/51-72 94-96 General appearance: normal weight, no acute distress - Head Head Exam: Present: normocephalic, atraumatic - Eye Eye Exam: Present: EOMI Pupils: Present: PERRL - ENT ENT exam: Present: normal exam, normal oropharynx - Neck Neck exam: Absent: lymphadenopathy, thyromegaly - Respiratory Respiratory exam: Present: CTAB. Absent: wheezes - GI/Abdominal GI/Abdominal exam: Present: soft. Absent: ascites, distended, mass Results - Labs CBC & BMP: 05/25/16 01:53 05/25/16 01:53
[2016-05-26 06:19] LABS: Hematocrit 23.5 VOL% (42.0-52.0); Immature Granulocytes % 1.5 %; Immature Granulocytes Absolute 0.03 #; Lymphocytes # 1.1 10*3/uL (1.4-4.0); Lymphocytes % 57.7 % (21.2-54.2); Mean Corpuscular Hemoglobin 32 PG (27-34); Mean Corpuscular Volume 94.8 FL (87-102); Mean Platelet Volume 9.6 FL (9.6-12.0); Monocytes # 0.5 10*3/uL (0.11-0.8); Monocytes % 25.3 % (1.7-12.7); Neutrophils # 0.3 10*3/uL (1.4-7.4); Neutrophils % 15.5 % (38.7-73.9); Red Blood Count 2.48 MC/CUMM (3.8-5.5); Red Cell Distribution Width 14.8 % (9.3-17.3); White Blood Count 1.9 T/CUMM (4-12)
[2016-05-26 06:36] LABS: Platelet Count 27 T/CUMM (130-400)
[2016-05-26 06:49] LABS: Bilirubin,Total 0.9 MG/DL (0.2-1.0); Calcium 7.1 MG/DL (8.5-10.1); Osmolality,Calculated 280.1 MOS/KG (273-304); Potassium 3.5 MMOL/L (3.5-5.1); Total Protein 4.4 G/DL (6.4-8.3)
[2016-05-26] MEDS: LEVOTHYROXINE 200 MCG TABLET PO SCH (06:52)
[2016-05-26 07:39] LABS: Atypical Lymphocytes 3+; Hypochromasia 2+; Lymphocytes 95 % (20-55); Platelet Estimate Decreased; Segmented Neutrophils 5 % (50-85); Total Cells Counted 100
[2016-05-26] MEDS: LISINOPRIL/HCTZ 10-12.5 MG TABLET PO SCH (08:46)
[2016-05-26] MEDS: TAMSULOSIN 0.4 MG CAPSULE PO SCH ×3 (08:46→20:30)
[2016-05-26] MEDS: FUROSEMIDE 20 MG TABLET PO SCH (08:46)
[2016-05-26] MEDS: PANTOPRAZOLE 40 MG TABLET PO SCH (08:46)
[2016-05-26] MEDS: CALCIUM (CARBONATE)/VITAMIN D 500 MG-200 UNIT TABLET PO SCH (08:46)
[2016-05-26] MEDS: LACTULOSE 20 GM/30 ML UDCUP PO SCH ×2 (08:48→20:30)
--- NOTE | 2016-05-26 11:01 | Oncology Progress Note ---
Assessment and Plan (1) Multiple myeloma Status: Acute Current Visit: Yes (2) Thrombocytopenia Status: Acute Current Visit: Yes (3) Thyroid cancer Status: Acute Current Visit: Yes (4) Prostate cancer Status: Acute Current Visit: Yes Oncology Subjective PN Interval history: He is doing well with no new complaints. His radiation levels still too high or discharge. His platelet count has decreased back down to 23 but is not need a transfusion for now. We will continue with his current orders. Dr. Ingram we will reevaluate him tomorrow. Exam - Constitutional Vitals: Period Temp Pulse Resp BP Sys/Sommer Pulse Ox Last 24 Hr 97.0 F 94 18-20 107/52 96 General appearance: normal weight, no acute distress - Head Head Exam: Present: normocephalic, atraumatic - ENT ENT exam: Present: normal exam, normal oropharynx - Respiratory Respiratory exam: Present: CTAB. Absent: wheezes Results - Labs CBC & BMP: 05/26/16 06:01 05/26/16 06:01
[2016-05-26] MEDS: SODIUM CHLORIDE 0.9% 1,000 ML IV SCH (13:13)
[2016-05-27 05:20] LABS: Hematocrit 24.1 VOL% (42.0-52.0); Hemoglobin 8.2 GM/DL (14.0-18.0)
[2016-05-27 05:24] LABS: Hematocrit 24.1 VOL% (42.0-52.0); Hemoglobin 8.2 GM/DL (14.0-18.0); Immature Granulocytes % 1.8 %; Immature Granulocytes Absolute 0.05 #; Lymphocytes # 0.6 10*3/uL (1.4-4.0); Mean Corpuscular Hemoglobin 32 PG (27-34); Mean Corpuscular Volume 93.8 FL (87-102); Mean Platelet Volume 9.8 FL (9.6-12.0); Monocytes # 1.8 10*3/uL (0.11-0.8); Monocytes % 63.4 % (1.7-12.7); Neutrophils # 0.4 10*3/uL (1.4-7.4); Neutrophils % 13.8 % (38.7-73.9); Platelet Count 22 T/CUMM (130-400); Red Blood Count 2.57 MC/CUMM (3.8-5.5); Red Cell Distribution Width 14.7 % (9.3-17.3)
[2016-05-27 05:44] LABS: White Blood Count 2.8 T/CUMM (4-12)
[2016-05-27 05:54] LABS: Bilirubin,Total 1.1 MG/DL (0.2-1.0); Calcium 7.3 MG/DL (8.5-10.1); Osmolality,Calculated 284.1 MOS/KG (273-304); Potassium 3.5 MMOL/L (3.5-5.1); Total Protein 4.4 G/DL (6.4-8.3)
[2016-05-27] MEDS: LEVOTHYROXINE 200 MCG TABLET PO SCH (06:09)
[2016-05-27 06:20] LABS: Atypical Lymphocytes Few; Band Neutrophils 3 % (0-10); Hypochromasia 1+; Lymphocytes 80 % (20-55); Platelet Estimate Decreased; Segmented Neutrophils 12 % (50-85); Total Cells Counted 100
[2016-05-27 06:21] LABS: Burr Cells Slight; Microcytosis Slight
--- NOTE | 2016-05-27 07:47 | Oncology Progress Note ---
Oncology Subjective PN Interval history: Mr. Toribio is currently receiving radioactive iodine whole body radiation. He has not been checked this morning to see if he can be removed from isolation or not. In addition, he has significant cytopenia is probably multifactorial but mainly due to his myeloma. He also has bladder outlet obstruction and is being evaluated for possible prostate cancer by Dr. Romero. Lab work today includes a white cell count 2800 with an absolute neutrophil count of 400. His hemoglobin is 8.2. His platelet count is 22,000. I attribute most of this to his myeloma, if not all of it. His serum creatinine is 3.7. His IgG, IgA and IgM are all low. I cannot locate his serum free light chain assay. I am reordering it stat. I ordered it last week. Of course there is no documentation of that order being placed or any reports on the free light chain levels that I can locate. He tells me that Dr. Gastelum called and instructed him to resume taking his thyroid hormone a couple days ago. Exam - Constitutional Vitals: Period Temp Pulse Resp BP Sys/Sommer Pulse Ox Last 24 Hr 98.5 F 101-113 18-21 138/76 91 Results - Labs CBC & BMP: 05/27/16 04:38 05/27/16 04:38
[2016-05-27] MEDS: TAMSULOSIN 0.4 MG CAPSULE PO SCH ×3 (09:54→20:42)
[2016-05-27] MEDS: PANTOPRAZOLE 40 MG TABLET PO SCH (09:59)
[2016-05-27] MEDS: LISINOPRIL/HCTZ 10-12.5 MG TABLET PO SCH (10:01)
[2016-05-27] MEDS: LACTULOSE 20 GM/30 ML UDCUP PO SCH ×2 (10:02→20:42)
[2016-05-27] MEDS: FUROSEMIDE 20 MG TABLET PO SCH (10:02)
[2016-05-27] MEDS: CALCIUM (CARBONATE)/VITAMIN D 500 MG-200 UNIT TABLET PO SCH (10:02)
--- NOTE | 2016-05-27 10:59 | Urology Progress Note ---
Assessment and Plan (1) Prostate cancer Status: Acute Assessment and plan: Patient needs to be restaged but this is not the time to do that. I will get the records from Dr. Rodriguez. He apparently got lost to follow-up. Patient tells me that surgery was recommended but that was few years ago. Current Visit: Yes (2) Urinary retention Status: Acute Assessment and plan: He is on Flomax. They are cathing as needed. He is constipated we will clear that up and it should improve. Current Visit: Yes Urology - PN: Subj Interval history: Patient's counts are still high. 21 last measure. I will continue the South. I did review some of the records that we got from [place] records. In the records it does state that he has prostate cancer but I do not have a biopsy report to confirm or deny that. Last PSA there in 2010 was 9. [facility] We will request records from there. He states he has not seen anybody in some years. Exam - Constitutional Vitals: Period Temp Pulse Resp BP Sys/Sommer Pulse Ox Last 24 Hr 98.5 F 101-113 18-21 138/76 91 Results - Labs CBC & BMP: 05/27/16 04:38 05/27/16 04:38
[2016-05-27] MEDS: SODIUM CHLORIDE 0.9% 1,000 ML IV SCH (14:01)
--- NOTE | 2016-05-27 14:17 | Physician Query Form ---
CLICK EDIT DOCUMENT TO SELECT QUERY ANSWER --> OK --> SIGN Aranza Courtney RN Clinical Benefits Technician W) [phone] (f) [phone] [email or web address] PROVIDERS: Make your selection(s) from the choices in EACH section by typing an "x" and enter comments in the comment section. Please use your independent medical judgment in providing your response. This request does not imply that any particular answer is desired or expected. CLINICAL INDICATORS: (Providers should not edit this section) Based on documentation of "Thyroid cancer, Multiple Myeloma" "Acute Prostate cancer" "I have just recently resumed chemotherapy on the patient using Velcade 2 mg IV and dexamethasone 40 mg IV weekly." WBC 2.3, RBC 2.69, PLT 20. Monitored with multiple lab checks. Based on the above, could you clarify the appropriate diagnosis, if significant , that supports the above abnormalities and additional evaluation, monitoring, and/or treatment rendered: ( ) Pancytopenia due to chemotherapy ( ) Pancytopenia NOT due to chemotherapy ( ) Does NOT have pancytopenia (x ) Other, please specify: ( ) Clinically unable to determine COMMENTS: The pancytopenia is due to the myeloma and the chemotherapy. Use of terms such as suspected, likely, or probable (associated with a specific diagnosis that is being evaluated, monitored, or treated as if it exists) are acceptable and can be restated in the discharge summary if not ruled out. MTDD
[2016-05-27] MEDS: TEMAZEPAM 7.5 MG CAPSULE PO PRN (20:41)
[2016-05-28] MEDS: LEVOTHYROXINE 200 MCG TABLET PO SCH (06:31)
[2016-05-28 07:08] LABS: Immuno Free Light Chain Kappa 1.01 MG/DL (0.33-1.94)
[2016-05-28 08:00] LABS: Hematocrit 25.6 VOL% (42.0-52.0); Hemoglobin 8.5 GM/DL (14.0-18.0); Immature Granulocytes % 0.4 %; Immature Granulocytes Absolute 0.02 #; Lymphocytes # 2.6 10*3/uL (1.4-4.0); Lymphocytes % 51.3 % (21.2-54.2); Mean Corpuscular HGB Conc 33.2 GM/DL (32-36); Mean Corpuscular Hemoglobin 32 PG (27-34); Mean Corpuscular Volume 94.8 FL (87-102); Mean Platelet Volume 10.5 FL (9.6-12.0); Monocytes % 38.9 % (1.7-12.7); Neutrophils # 0.5 10*3/uL (1.4-7.4); Neutrophils % 9.4 % (38.7-73.9); Red Cell Distribution Width 15.1 % (9.3-17.3)
[2016-05-28] MEDS ORDERED: DEXAMETHASONE 10 MG/1 ML VIAL IV ONE (08:05)
[2016-05-28 08:08] LABS: Platelet Count 21 T/CUMM (130-400)
[2016-05-28] MEDS ORDERED: SODIUM CHLORIDE 0.9% 250 ML IV PRN ×2 (08:08→08:32)
--- NOTE | 2016-05-28 08:08 | Oncology Progress Note ---
Oncology Subjective PN Interval history: Mr. Toribio is exceedingly weak. I am starting him on dexamethasone. I have ordered 20 mg IV daily. He is still radioactive from the radioactive iodine treatment. I hope that we can get through with this fairly soon. This is taking a long time for his body to clear. He has developed pancytopenia this getting worse. He is probably going to need transfusions again fairly soon. I ordered lab work daily on him and somehow it got canceled. I have ordered stat lab work today and am awaiting the results. I even ordered them stat and they did not come back yet. He has underlying myeloma that needs treatment and I need to resume it as soon as possible that he needs to be done with his radioactive iodine treatment for his thyroid cancer. Exam - Constitutional Vitals: Period Temp Pulse Resp BP Sys/Sommer Pulse Ox Last 24 Hr 15-20 Results - Labs CBC & BMP: 05/28/16 07:33 05/27/16 04:38
[2016-05-28 08:30] LABS: Albumin 2.2 G/DL (3.4-5.0); Calcium 7.5 MG/DL (8.5-10.1); Osmolality,Calculated 278.2 MOS/KG (273-304); Potassium 3.7 MMOL/L (3.5-5.1); Total Protein 4.6 G/DL (6.4-8.3)
[2016-05-28] MEDS ORDERED: DEXAMETHASONE INJ 20 MG in SODIUM CHLORIDE 0.9% 50 ML IV ONE (08:30)
[2016-05-28 08:38] LABS: Atypical Lymphocytes Few; Band Neutrophils 2 % (0-10); Burr Cells Slight; Hypochromasia 1+; Lymphocytes 89 % (20-55); Microcytosis Slight; Ovalocytes Slight; Platelet Estimate Decreased; Segmented Neutrophils 9 % (50-85); Total Cells Counted 100
[2016-05-28] MEDS ORDERED: DEXAMETHASONE 10 MG/1 ML VIAL IV SCH (09:00)
--- NOTE | 2016-05-28 09:22 | XRay Report ---
XR chest 1V portable Indication: Dyspnea Comparison: 18 May 2016 Findings: The heart and mediastinum are stable in size and configuration. Left posterior rib abnormality is similar to previous exam. The pulmonary vascularity is normal in caliber. No lung infiltrates, effusions, pneumothorax or other abnormality is demonstrated. Impression: No acute findings or significant change. PROCEDURE INTERPRETED AT [facility] DEPARTMENT OF RADIOLOGY Final Report Signed by: Dr. Lincoln David
[2016-05-28] MEDS: LACTULOSE 20 GM/30 ML UDCUP PO SCH ×2 (09:31→20:51)
[2016-05-28] MEDS: TAMSULOSIN 0.4 MG CAPSULE PO SCH ×3 (09:33→22:05)
[2016-05-28] MEDS: CALCIUM (CARBONATE)/VITAMIN D 500 MG-200 UNIT TABLET PO SCH (09:38)
[2016-05-28] MEDS: LISINOPRIL/HCTZ 10-12.5 MG TABLET PO SCH (09:38)
[2016-05-28] MEDS: PANTOPRAZOLE 40 MG TABLET PO SCH (09:39)
[2016-05-28] MEDS: FUROSEMIDE 20 MG TABLET PO SCH (09:40)
[2016-05-29 06:42] LABS: Hematocrit 28.4 VOL% (42.0-52.0); Hemoglobin 9.6 GM/DL (14.0-18.0); Immature Granulocytes % 1.3 %; Immature Granulocytes Absolute 0.06 #; Lymphocytes # 1.6 10*3/uL (1.4-4.0); Lymphocytes % 33.8 % (21.2-54.2); Mean Corpuscular HGB Conc 33.8 GM/DL (32-36); Mean Corpuscular Hemoglobin 31 PG (27-34); Mean Corpuscular Volume 90.2 FL (87-102); Mean Platelet Volume 10.4 FL (9.6-12.0); Monocytes # 2.6 10*3/uL (0.11-0.8); Monocytes % 56.3 % (1.7-12.7); Neutrophils # 0.4 10*3/uL (1.4-7.4); Neutrophils % 8.6 % (38.7-73.9); Red Blood Count 3.15 MC/CUMM (3.8-5.5); Red Cell Distribution Width 16.5 % (9.3-17.3); White Blood Count 4.6 T/CUMM (4-12)
[2016-05-29] MEDS: LEVOTHYROXINE 200 MCG TABLET PO SCH (06:47)
[2016-05-29 06:48] LABS: Platelet Count 36 T/CUMM (130-400)
[2016-05-29 07:05] LABS: Atypical Lymphocytes 3+; Lymphocytes 89 % (20-55); Platelet Estimate Decreased; Segmented Neutrophils 11 % (50-85); Target Cells Slight; Total Cells Counted 100
--- NOTE | 2016-05-29 07:05 | Oncology Progress Note ---
Oncology Subjective PN Interval history: I have no idea whether this patient is stillorder to get it done. It was finally done on May 27 and his lambda free light chain level is 1332.0 on isolation due to his recent radioactive iodine treatment for metastatic thyroid cancer or not. He has documented metastatic disease to the right neck. He also has myeloma not been holding treatment of it while he receives the radioactive iodine treatment. In addition, he has bladder outlet obstruction and is being seen by Dr. Romero. This may represent prostate cancer. Blood work today includes white cell count of 4600. He has a platelet count 36, 000 and a hemoglobin of 9.6 after transfusion. He reports that he is feeling better today after receiving blood and being started on dexamethasone. He has had worsening of multiple conditions including the metastatic thyroid cancer and the myeloma. I had to order the serum free light chain assay more than once before it finally got done. The initial order disappeared from this electronic medical record. This delays diagnosis and treatment. Exam - Constitutional Vitals: Period Temp Pulse Resp BP Sys/Sommer Pulse Ox Last 24 Hr 97.2 F-98.7 F 94-110 16-20 101-131/47-65 93-96 Results - Labs CBC & BMP: 05/29/16 06:25 05/29/16 06:25
[2016-05-29 07:11] LABS: Bilirubin,Total 0.9 MG/DL (0.2-1.0); Calcium 7.2 MG/DL (8.5-10.1); Osmolality,Calculated 282.5 MOS/KG (273-304); Potassium 4.1 MMOL/L (3.5-5.1); Total Protein 4.8 G/DL (6.4-8.3)
[2016-05-29] MEDS: SODIUM CHLORIDE 0.9% 1,000 ML IV SCH ×3 (08:08→12:22)
[2016-05-29] MEDS: CALCIUM (CARBONATE)/VITAMIN D 500 MG-200 UNIT TABLET PO SCH (08:55)
[2016-05-29] MEDS: FUROSEMIDE 20 MG TABLET PO SCH (08:55)
[2016-05-29] MEDS: DEXAMETHASONE INJ 20 MG in SODIUM CHLORIDE 0.9% 50 ML IV SCH (08:55)
[2016-05-29] MEDS: PANTOPRAZOLE 40 MG TABLET PO SCH (08:55)
[2016-05-29] MEDS: LISINOPRIL/HCTZ 10-12.5 MG TABLET PO SCH (08:55)
[2016-05-29] MEDS: TAMSULOSIN 0.4 MG CAPSULE PO SCH ×3 (08:55→21:04)
[2016-05-29] MEDS: LACTULOSE 20 GM/30 ML UDCUP PO SCH ×2 (08:55→21:04)
--- NOTE | 2016-05-29 12:30 | Urology Progress Note ---
Assessment and Plan (1) Prostate cancer Status: Acute Assessment and plan: Patient needs to be restaged but this is not the time to do that. I will get the records from Dr. Rodriguez. He apparently got lost to follow-up. Patient tells me that surgery was recommended but that was few years ago. Current Visit: Yes (2) Urinary retention Status: Acute Assessment and plan: He is on Flomax. They are cathing as needed. He is constipated we will clear that up and it should improve. Current Visit: Yes Urology - PN: Subj Interval history: Patient's counts are 12. So he is getting close. If they are low enough tomorrow I may remove his catheter given voiding trial. We have doubled his Flomax. Hopefully he will avoid. I reviewed the records from Dr. Rodriguez he did indeed have carcinoma prostate Dr. Rodriguez recommended some formal treatment and I think it was surgery. The patient then [facility] I do not have those records. Patient stated that they recommended radiation. He states that he cannot afford to stay up there because he would have had to stay there 21 days or some such. Last PSA per Dr. Rodriguez was around 9. I have not done a PSA yet and we need to wait until we get his voiding better. Exam - Constitutional Vitals: Period Temp Pulse Resp BP Sys/Sommer Pulse Ox Last 24 Hr 97.2 F-98.7 F 94-106 16-20 101-131/47-65 95-96 Results - Labs CBC & BMP: 05/29/16 06:25 05/29/16 06:25
[2016-05-30 04:54] LABS: Hematocrit 27.7 VOL% (42.0-52.0); Hemoglobin 9.7 GM/DL (14.0-18.0); Immature Granulocytes Absolute 0.08 #; Lymphocytes % 50.8 % (21.2-54.2); Mean Corpuscular Hemoglobin 31 PG (27-34); Mean Corpuscular Volume 87.4 FL (87-102); Mean Platelet Volume 9.6 FL (9.6-12.0); Monocytes # 1.5 10*3/uL (0.11-0.8); Neutrophils # 0.3 10*3/uL (1.4-7.4); Neutrophils % 8.2 % (38.7-73.9); Red Blood Count 3.17 MC/CUMM (3.8-5.5); Red Cell Distribution Width 16.6 % (9.3-17.3); White Blood Count 3.9 T/CUMM (4-12)
[2016-05-30 04:57] LABS: Platelet Count 27 T/CUMM (130-400)
[2016-05-30 05:49] LABS: Albumin 1.9 G/DL (3.4-5.0); Osmolality,Calculated 278.4 MOS/KG (273-304); Potassium 3.9 MMOL/L (3.5-5.1); Total Protein 4.5 G/DL (6.4-8.3)
[2016-05-30 05:55] LABS: Band Neutrophils 3 % (0-10); Lymphocytes 85 % (20-55); Segmented Neutrophils 11 % (50-85); Total Cells Counted 100
[2016-05-30 05:56] LABS: Atypical Lymphocytes Few; Burr Cells Slight; Hypochromasia 1+; Microcytosis Slight; Ovalocytes Slight; Platelet Estimate Decreased
[2016-05-30] MEDS: LEVOTHYROXINE 200 MCG TABLET PO SCH ×2 (05:57→06:06)
--- NOTE | 2016-05-30 07:36 | Oncology Progress Note ---
Oncology Subjective PN Interval history: Mr. Toribio has 3 malignancies we are evaluating as well as pancytopenia. He has metastatic thyroid cancer for which she is receiving radioactive iodine. It is taking and eternity for this treatment to finish. In the meantime he has been transfused because of symptomatic anemia. He is also on IV corticosteroids because of the myeloma. He has prostate cancer of uncertain extent and currently has a catheter in place. Dr. Romero has been consulted on him for evaluation of the prostate cancer. I am rechecking thyroid hormone levels. He is extremely weak to the point he cannot even get to the bathroom by himself. We have multiple disease processes going on that could be life-threatening. I am ordering Velcade IV today. TSH and free T4 have been ordered as well. Exam - Constitutional Vitals: Period Temp Pulse Resp BP Sys/Sommer Pulse Ox Last 24 Hr - Results - Labs CBC & BMP: 05/30/16 04:25 05/30/16 04:25
[2016-05-30] MEDS: LACTULOSE 20 GM/30 ML UDCUP PO SCH ×2 (09:07→21:13)
[2016-05-30] MEDS: DEXAMETHASONE INJ 20 MG in SODIUM CHLORIDE 0.9% 50 ML IV SCH (09:07)
[2016-05-30] MEDS: CALCIUM (CARBONATE)/VITAMIN D 500 MG-200 UNIT TABLET PO SCH (09:08)
[2016-05-30] MEDS: PANTOPRAZOLE 40 MG TABLET PO SCH (09:08)
[2016-05-30] MEDS: LISINOPRIL/HCTZ 10-12.5 MG TABLET PO SCH (09:08)
[2016-05-30] MEDS: TAMSULOSIN 0.4 MG CAPSULE PO SCH ×3 (09:08→21:12)
[2016-05-30] MEDS: FUROSEMIDE 20 MG TABLET PO SCH (09:08)
[2016-05-30] MEDS ORDERED: BORTEZOMIB IV ONE (09:49)
[2016-05-30] MEDS ORDERED: SODIUM CHLORIDE 0.9% IV ONE (09:49)
[2016-05-30] MEDS: DEXTROSE 5% NACL 0.45% 1,000 ML IV SCH (11:07)
[2016-05-30] MEDS: FLUCONAZOLE 100 MG TABLET PO SCH (11:08)
--- NOTE | 2016-05-30 11:38 | Urology Progress Note ---
Assessment and Plan (1) Prostate cancer Status: Acute Assessment and plan: Patient needs to be restaged but this is not the time to do that. I will get the records from Dr. Rodriguez. He apparently got lost to follow-up. Patient tells me that surgery was recommended but that was few years ago. Current Visit: Yes (2) Urinary retention Status: Acute Assessment and plan: He is on Flomax. They are cathing as needed. He is constipated we will clear that up and it should improve. Current Visit: Yes Urology - PN: Subj Interval history: Patient's counts are now down to 10. More than likely his counts will be low enough tomorrow or I will remove the South. We will perform intermittent catheterization as needed. Exam - Constitutional Vitals: Period Temp Pulse Resp BP Sys/Sommer Pulse Ox Last 24 Hr 18-20 Results - Labs CBC & BMP: 05/30/16 04:25 05/30/16 04:25
[2016-05-31 03:45] LABS: Basophils % 0.3 % (0.0-0.8); Hematocrit 26.5 VOL% (42.0-52.0); Hemoglobin 9.2 GM/DL (14.0-18.0); Immature Granulocytes % 2.7 %; Immature Granulocytes Absolute 0.09 #; Lymphocytes % 31.1 % (21.2-54.2); Mean Corpuscular HGB Conc 34.7 GM/DL (32-36); Mean Corpuscular Hemoglobin 31 PG (27-34); Mean Corpuscular Volume 88.3 FL (87-102); Monocytes # 1.8 10*3/uL (0.11-0.8); Monocytes % 53.4 % (1.7-12.7); Neutrophils # 0.4 10*3/uL (1.4-7.4); Neutrophils % 12.5 % (38.7-73.9); Red Cell Distribution Width 16.4 % (9.3-17.3); White Blood Count 3.3 T/CUMM (4-12)
[2016-05-31 03:51] LABS: Platelet Count 21 T/CUMM (130-400)
[2016-05-31 04:17] LABS: Calcium 6.9 MG/DL (8.5-10.1); Osmolality,Calculated 283.8 MOS/KG (273-304); Potassium 4.2 MMOL/L (3.5-5.1); Total Protein 4.5 G/DL (6.4-8.3)
[2016-05-31 04:22] LABS: Free T4 (Free Thyroxine) 0.86 NG/DL (0.76-1.46); Thyroid Stimulating Hormone 7.08 uIU/ml (0.358-3.74)
[2016-05-31 04:33] LABS: Atypical Lymphocytes Moderate; Band Neutrophils 7 % (0-10); Lymphocytes 64 % (20-55); Myelocytes 1 %; Platelet Estimate Decreased; Segmented Neutrophils 22 % (50-85); Total Cells Counted 100
[2016-05-31 04:34] LABS: Smudge Cells Moderate
[2016-05-31] MEDS: LEVOTHYROXINE 200 MCG TABLET PO SCH (06:50)
--- NOTE | 2016-05-31 07:48 | Oncology Progress Note ---
Oncology Subjective PN Interval history: Mr. Toribio has 3 cancers that were actively treating including: Myeloma, metastatic thyroid carcinoma and prostate cancer. He is extremely weak and debilitated. Blood work today includes a white cell count 3300 with an absolute neutrophil count of 400. His hemoglobin is 9.2. His platelet count is 21,000. His serum creatinine is 3.1. I increase his IV fluid intake yesterday. The TSH done today is high at 7.08. He is prostrate although he is responsive. He has no obvious neurologic deficits. He still has enough radioactivity that we cannot discontinue isolation. He just received whole-body radioactive iodine therapy for his metastatic thyroid cancer. I began chemotherapy again for his myeloma. Dr. Romero' evaluation of his prostate cancer is on hold until he can safely proceed. Results - Labs CBC & BMP: 05/31/16 03:06 05/31/16 03:06
[2016-05-31] MEDS: FLUCONAZOLE 100 MG TABLET PO SCH (09:45)
[2016-05-31] MEDS: FUROSEMIDE 20 MG TABLET PO SCH (09:45)
[2016-05-31] MEDS: PANTOPRAZOLE 40 MG TABLET PO SCH (09:45)
[2016-05-31] MEDS: LISINOPRIL/HCTZ 10-12.5 MG TABLET PO SCH (09:45)
[2016-05-31] MEDS: CALCIUM (CARBONATE)/VITAMIN D 500 MG-200 UNIT TABLET PO SCH (09:45)
[2016-05-31] MEDS: DEXAMETHASONE INJ 20 MG in SODIUM CHLORIDE 0.9% 50 ML IV SCH (09:45)
[2016-05-31] MEDS: LACTULOSE 20 GM/30 ML UDCUP PO SCH ×2 (09:46→20:32)
[2016-05-31] MEDS: TAMSULOSIN 0.4 MG CAPSULE PO SCH ×3 (09:46→20:10)
[2016-05-31] MEDS: ONDANSETRON 4 MG/2 ML VIAL IV PRN (20:10)
[2016-05-31] MEDS: DEXTROSE 5% NACL 0.45% 1,000 ML IV SCH (22:27)
[2016-06-01 06:08] LABS: Hematocrit 27.3 VOL% (42.0-52.0); Hemoglobin 9.4 GM/DL (14.0-18.0); Immature Granulocytes % 0.6 %; Immature Granulocytes Absolute 0.01 #; Lymphocytes # 0.4 10*3/uL (1.4-4.0); Lymphocytes % 23.8 % (21.2-54.2); Mean Corpuscular HGB Conc 34.4 GM/DL (32-36); Mean Corpuscular Hemoglobin 31 PG (27-34); Mean Corpuscular Volume 89.8 FL (87-102); Mean Platelet Volume 10.4 FL (9.6-12.0); Monocytes # 0.8 10*3/uL (0.11-0.8); Neutrophils # 0.4 10*3/uL (1.4-7.4); Neutrophils % 25.6 % (38.7-73.9); Red Blood Count 3.04 MC/CUMM (3.8-5.5); White Blood Count 1.7 T/CUMM (4-12)
[2016-06-01] MEDS: LEVOTHYROXINE 200 MCG TABLET PO SCH (06:29)
[2016-06-01 06:39] LABS: Albumin 1.9 G/DL (3.4-5.0); Bilirubin,Total 0.7 MG/DL (0.2-1.0); Calcium 6.4 MG/DL (8.5-10.1); Osmolality,Calculated 277.4 MOS/KG (273-304); Potassium 4.4 MMOL/L (3.5-5.1); Total Protein 4.6 G/DL (6.4-8.3)
[2016-06-01 06:41] LABS: Platelet Count 15 T/CUMM (130-400)
[2016-06-01 06:48] LABS: Acanthocytes Few; Anisocytosis 1+; Band Neutrophils 3 % (0-10); Hypochromasia 1+; Lymphocytes 25 % (20-55); Macrocytosis 1+; Metamyelocytes 3 %; Ovalocytes 1+; Platelet Estimate Decreased; Segmented Neutrophils 23 % (50-85); Total Cells Counted 99
--- NOTE | 2016-06-01 09:41 | Oncology Progress Note ---
Oncology Subjective PN Interval history: Mr. Toribio remains critically ill with myeloma, metastatic thyroid cancer and prostate cancer. This patient is on treatment for 3 separate cancers including metastatic thyroid cancer which has become a very worrisome issue because of the prolonged period of time is taking for him to reach a safe level where he no longer needs isolation. This has become a risk management issue. I was informed yesterday that if something happens to this patient in the next 3 months the special measures will need to be taken. I was not involved in calculating the dose of the radioactive iodine nor was I contacted before it was ordered although I did approve the order ultimately. His platelet count today is 15,000. His white cell count is down to 1700 and his absolute neutrophil count is 400. His hemoglobin is 9.4. His TSH is 7.08 which is above normal. His serum creatinine is 2.7 and falling. We are hydrating him aggressively. He has not been checked today for radioactivity. He seems a little bit more alert today but he is still prostrate and exceedingly weak. This delay in the patient clearing the radioactive iodine is prolonging his length of stay and disrupting treatment of his other malignancies and has become a major issue. Exam - Constitutional Vitals: Period Temp Pulse Resp BP Sys/Sommer Pulse Ox Last 24 Hr 96.8 F 96 12-21 118/61 Results - Labs CBC & BMP: 06/01/16 05:54 06/01/16 05:54
[2016-06-01] MEDS ORDERED: SODIUM CHLORIDE 0.9% 250 ML IV PRN (09:43)
[2016-06-01] MEDS: PANTOPRAZOLE 40 MG TABLET PO SCH (10:29)
[2016-06-01] MEDS: DEXAMETHASONE INJ 20 MG in SODIUM CHLORIDE 0.9% 50 ML IV SCH (10:29)
[2016-06-01] MEDS: FUROSEMIDE 20 MG TABLET PO SCH (10:30)
[2016-06-01] MEDS: CALCIUM (CARBONATE)/VITAMIN D 500 MG-200 UNIT TABLET PO SCH (10:30)
[2016-06-01] MEDS: FILGRASTIM-SNDZ 300 MCG/0.5 ML SYRINGE SUBCUT SCH (10:30)
[2016-06-01] MEDS: FLUCONAZOLE 100 MG TABLET PO SCH (10:30)
[2016-06-01] MEDS: TAMSULOSIN 0.4 MG CAPSULE PO SCH ×3 (10:30→21:00)
[2016-06-01] MEDS: LACTULOSE 20 GM/30 ML UDCUP PO SCH ×2 (10:30→21:00)
[2016-06-01] MEDS: ONDANSETRON 4 MG/2 ML VIAL IV PRN (11:19)
[2016-06-01] MEDS: INSULIN REGULAR 100 UNIT/ML SUBCUT SCH ×3 (12:59→21:01)
[2016-06-01 17:25] VITALS: BP 136/68
[2016-06-01] MEDS: LISINOPRIL/HCTZ 10-12.5 MG TABLET PO SCH (19:15)
[2016-06-01] MEDS: TEMAZEPAM 7.5 MG CAPSULE PO PRN (21:00)
[2016-06-02] MEDS: DEXTROSE 5% NACL 0.45% 1,000 ML IV SCH (03:30)
[2016-06-02] MEDS: LEVOTHYROXINE 200 MCG TABLET PO SCH (06:19)
[2016-06-02 06:32] LABS: Hemoglobin 9.2 GM/DL (14.0-18.0); Immature Granulocytes % 5.5 %; Immature Granulocytes Absolute 0.06 #; Lymphocytes # 0.1 10*3/uL (1.4-4.0); Lymphocytes % 11.9 % (21.2-54.2); Mean Corpuscular HGB Conc 35.4 GM/DL (32-36); Mean Corpuscular Hemoglobin 31 PG (27-34); Mean Corpuscular Volume 88.1 FL (87-102); Mean Platelet Volume 11.2 FL (9.6-12.0); Monocytes # 0.6 10*3/uL (0.11-0.8); Monocytes % 50.5 % (1.7-12.7); Neutrophils # 0.4 10*3/uL (1.4-7.4); Neutrophils % 32.1 % (38.7-73.9); Red Blood Count 2.95 MC/CUMM (3.8-5.5); Red Cell Distribution Width 15.5 % (9.3-17.3); White Blood Count 1.1 T/CUMM (4-12)
[2016-06-02 06:37] LABS: Platelet Count 38 T/CUMM (130-400)
[2016-06-02 07:08] LABS: Albumin 1.8 G/DL (3.4-5.0); Bilirubin,Total 0.5 MG/DL (0.2-1.0); Calcium 6.3 MG/DL (8.5-10.1); Osmolality,Calculated 275.5 MOS/KG (273-304); Potassium 4.4 MMOL/L (3.5-5.1); Total Protein 4.5 G/DL (6.4-8.3)
[2016-06-02 08:30] LABS: Lymphocytes 52 % (20-55); Segmented Neutrophils 37 % (50-85); Total Cells Counted 100
[2016-06-02 08:34] LABS: Hypochromasia 1+
[2016-06-02 08:35] LABS: Atypical Lymphocytes Moderate; Microcytosis Slight; Ovalocytes 1+; Platelet Estimate Decreased
[2016-06-02 08:36] LABS: Acanthocytes Few
[2016-06-02] MEDS: PANTOPRAZOLE 40 MG TABLET PO SCH (09:12)
[2016-06-02] MEDS: FUROSEMIDE 20 MG TABLET PO SCH (09:12)
[2016-06-02] MEDS: FLUCONAZOLE 100 MG TABLET PO SCH (09:12)
[2016-06-02] MEDS: TAMSULOSIN 0.4 MG CAPSULE PO SCH ×2 (09:12→20:56)
[2016-06-02] MEDS: CALCIUM (CARBONATE)/VITAMIN D 500 MG-200 UNIT TABLET PO SCH (09:12)
[2016-06-02] MEDS: FILGRASTIM-SNDZ 300 MCG/0.5 ML SYRINGE SUBCUT SCH (09:12)
[2016-06-02] MEDS: INSULIN REGULAR 100 UNIT/ML SUBCUT SCH ×4 (09:13→20:58)
[2016-06-02] MEDS: DEXAMETHASONE INJ 20 MG in SODIUM CHLORIDE 0.9% 50 ML IV SCH (09:13)
[2016-06-02] MEDS: LACTULOSE 20 GM/30 ML UDCUP PO SCH ×2 (09:13→20:56)
--- NOTE | 2016-06-02 10:29 | Oncology Progress Note ---
Oncology Subjective PN Interval history: This patient is actually being treated for 3 separate malignancies including: Metastatic thyroid carcinoma for which she has received whole-body radiation that has taken an incredibly long period of time to clear. He remains radioactive. None of this data has been placed in the electronic medical record and we have no details about the patient's dose or the treatment plan. They were not discussed with me and I did not handle that part of this patient' s treatment. There are risks and repercussions to this particular radioactive iodine treatment were not discussed with me until after the fact. This prolonged interval between the patient receiving the dose of radioactive iodine and the time that it is cleared is disrupting care of his other malignancies. However, it does appear that the right neck mass is decreasing in size. 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 Blood work today includes white cell count of 1100 with a hemoglobin of 9.2 and a platelet count of 38,000 after receiving platelet transfusion yesterday. Renal function is stable with a serum creatinine being 2.7. I am starting him on Neupogen today for his neutropenia. Prostate cancer, the extent of which is not known presently. Exam - Constitutional Vitals: Period Temp Pulse Resp BP Sys/Sommer Pulse Ox Last 24 Hr 97.1 F-98.7 F 94-100 12-20 126-136/66-73 Results - Labs CBC & BMP: 06/02/16 06:18 06/02/16 06:18
[2016-06-03 02:08] LABS: Hemoglobin 9.1 GM/DL (14.0-18.0); Lymphocytes # 0.2 10*3/uL (1.4-4.0); Lymphocytes % 41.8 % (21.2-54.2); Mean Corpuscular Hemoglobin 30 PG (27-34); Mean Corpuscular Volume 86.7 FL (87-102); Mean Platelet Volume 9.7 FL (9.6-12.0); Monocytes # 0.1 10*3/uL (0.11-0.8); Monocytes % 14.5 % (1.7-12.7); Neutrophils # 0.2 10*3/uL (1.4-7.4); Neutrophils % 43.7 % (38.7-73.9); Red Cell Distribution Width 15.5 % (9.3-17.3)
[2016-06-03] MEDS: DEXTROSE 5% NACL 0.45% 1,000 ML IV SCH (02:27)
[2016-06-03 02:49] LABS: Albumin 1.9 G/DL (3.4-5.0); Bilirubin,Total 0.6 MG/DL (0.2-1.0); Calcium 6.1 MG/DL (8.5-10.1); Osmolality,Calculated 275.2 MOS/KG (273-304); Potassium 4.1 MMOL/L (3.5-5.1); Total Protein 4.6 G/DL (6.4-8.3)
[2016-06-03 03:47] LABS: Platelet Count 23 T/CUMM (130-400); White Blood Count 0.6 T/CUMM (4-12)
[2016-06-03 04:08] LABS: Band Neutrophils 11 % (0-10); Lymphocytes 46 % (20-55); Metamyelocytes 6 %; Platelet Estimate Decreased; Segmented Neutrophils 31 % (50-85); Total Cells Counted 100
[2016-06-03 04:09] LABS: Hypochromasia Slight
[2016-06-03] MEDS: LEVOTHYROXINE 200 MCG TABLET PO SCH (06:12)
--- NOTE | 2016-06-03 07:40 | Oncology Progress Note ---
Oncology Subjective PN Interval history: Diagnosis: Myeloma. This patient's last Velcade dose was given May 30, 2016 and was 2 mg intravenously.He asked me about taking further Velcade but I am putting that on hold now because of his pancytopenia. Diagnosis: Metastatic thyroid carcinoma. He has received radioactive iodine but I cannot find documentation of the actual dose he received. This patient has metastatic this patient has metastatic thyroid cancer for which he has received radioactive iodine. I have been shown the paper documentation. He received 181 mCi of I-131 on May 22, 2016. It has been exceptionally slow to clear. Diagnosis: Prostate cancer. Evaluation of this has been placed on hold until the patient's radioactive iodine treatment is completed. Diagnoses: Severe thrombocytopenia and neutropenia.Today the patient has a white count of 600 with a hemoglobin of 9.1 and a platelet count of 23,000. His absolute neutrophil count is 200. He is on granulocyte colony-stimulating factor. His radioactivity level has finally dropped to the point that he no longer needs to be isolated. I have talked with his and I have also talked with his brother with the patient's permission. He is critically ill and may not survive this hospital stay. Exam - Constitutional Vitals: Period Temp Pulse Resp BP Sys/Sommer Pulse Ox Last 24 Hr 18-20 Results - Labs CBC & BMP: 06/03/16 01:55 06/03/16 01:55
[2016-06-03] MEDS: INSULIN REGULAR 100 UNIT/ML SUBCUT SCH ×4 (09:43→21:11)
[2016-06-03] MEDS: FILGRASTIM-SNDZ 300 MCG/0.5 ML SYRINGE SUBCUT SCH (09:44)
[2016-06-03] MEDS: DEXAMETHASONE INJ 20 MG in SODIUM CHLORIDE 0.9% 50 ML IV SCH (09:45)
[2016-06-03] MEDS: FLUCONAZOLE 100 MG TABLET PO SCH (09:45)
[2016-06-03] MEDS: LACTULOSE 20 GM/30 ML UDCUP PO SCH ×2 (09:45→21:11)
[2016-06-03] MEDS: TAMSULOSIN 0.4 MG CAPSULE PO SCH ×2 (09:45→21:11)
[2016-06-03] MEDS: PANTOPRAZOLE 40 MG TABLET PO SCH (09:46)
[2016-06-03] MEDS: CALCIUM (CARBONATE)/VITAMIN D 500 MG-200 UNIT TABLET PO SCH (09:46)
[2016-06-03] MEDS: FUROSEMIDE 20 MG TABLET PO SCH (09:46)
[2016-06-03] MEDS: ONDANSETRON 4 MG/2 ML VIAL IV PRN (10:11)
--- NOTE | 2016-06-03 18:30 | Urology Progress Note ---
Assessment and Plan (1) Prostate cancer Status: Acute Assessment and plan: Patient needs to be restaged but this is not the time to do that. I will get the records from Dr. Rodriguez. He apparently got lost to follow-up. Patient tells me that surgery was recommended but that was few years ago. Current Visit: Yes (2) Urinary retention Status: Acute Assessment and plan: He is on Flomax. They are cathing as needed. He is constipated we will clear that up and it should improve. Current Visit: Yes Urology - PN: Subj Interval history: Returning to see Mr. Toribio. Events noted. He is poorly responsive tonight urine is clear. I will follow from a far. Exam - Constitutional Vitals: Period Temp Pulse Resp BP Sys/Sommer Pulse Ox Last 24 Hr 18-20 Results - Labs CBC & BMP: 06/03/16 01:55 06/03/16 01:55
[2016-06-03] MEDS ORDERED: MORPHINE 2 MG/1 ML SYRINGE IV PRN (20:14)
[2016-06-03] MEDS ORDERED: DESITIN 4OZ/NYSTATIN 15 GRAM MIXTURE PASTE TOP SCH (21:00)
[2016-06-04 05:27] LABS: Hematocrit 24.1 VOL% (42.0-52.0); Hemoglobin 8.3 GM/DL (14.0-18.0); Immature Granulocytes % 12.8 %; Immature Granulocytes Absolute 0.05 #; Lymphocytes # 0.2 10*3/uL (1.4-4.0); Lymphocytes % 51.3 % (21.2-54.2); Mean Corpuscular HGB Conc 34.4 GM/DL (32-36); Mean Corpuscular Hemoglobin 30 PG (27-34); Mean Platelet Volume 9.9 FL (9.6-12.0); Monocytes # 0.1 10*3/uL (0.11-0.8); Monocytes % 15.4 % (1.7-12.7); Neutrophils # 0.1 10*3/uL (1.4-7.4); Neutrophils % 20.5 % (38.7-73.9); Red Blood Count 2.74 MC/CUMM (3.8-5.5); Red Cell Distribution Width 15.6 % (9.3-17.3)
[2016-06-04 05:32] LABS: Platelet Count 14 T/CUMM (130-400); White Blood Count 0.4 T/CUMM (4-12)
[2016-06-04 05:52] LABS: Atypical Lymphocytes Few; Band Neutrophils 10 % (0-10); Hypochromasia 1+; Lymphocytes 90 % (20-55); Ovalocytes Slight; Platelet Estimate Decreased; Total Cells Counted 100
[2016-06-04 05:53] LABS: Microcytosis Slight
[2016-06-04 05:56] LABS: Albumin 1.6 G/DL (3.4-5.0); Bilirubin,Total 1.1 MG/DL (0.2-1.0); Calcium 6.1 MG/DL (8.5-10.1); Osmolality,Calculated 274.1 MOS/KG (273-304); Potassium 4.4 MMOL/L (3.5-5.1); Total Protein 4.2 G/DL (6.4-8.3)
--- NOTE | 2016-06-04 06:52 | Event Note ---
Patient is a 71-year-old white male admitted to Dr. Ingram in room 630 who was found unresponsive and without pulse or blood pressure at 0628. ESSIE OAKES was called. Patient was intubated upon my arrival. CPR was in progress. Patient was given epinephrine IV. He was in asystole during this time. He had no response to any heroic measures. Patient was intubated with an 8.0 ET tube placed to 23 cm at the lip. The patient had tube placement confirmed by visualization crossing the cords, auscultation, and color change monitor. Patient had what appeared to be purulent sputum come back from below the cords. Patient was given a second round of epinephrine without any response. The patient remained in asystole throughout. Patient was pronounced at 0639. Dr. Ingram was notified. Patient had a known history of thyroid cancer, prostate cancer, and multiple myeloma.
--- NOTE | 2016-06-04 07:03 | Discharge Summary ---
Hospital Course - Hospital Course Hospital Course: Diagnoses: #1: Weakness and prostration #2: Recurrent metastatic thyroid carcinoma, poorly differentiated. #3: Light chain myeloma undergoing treatment #4: The patient is anemic and it is probably contributing to his dyspnea. #5: Chronic renal failure secondary to myeloma with acute exacerbation. #6: Severe leukopenia #7: Severe thrombocytopenia #8: Anemia requiring blood transfusion #9: Suspected progression of metastatic prostate cancer with bladder outlet obstruction This patient was admitted on May 18 with profound weakness and prostration. He had already been scheduled to receive radioactive iodine. I did not calculate the dose nor did I supervise administration of it. This was done by the department of radiology here. We held radioactive iodine treatment until May 22 because of urinary retention felt to be due to the patient's inability to void. He ultimately look received 181 mCi of I-131. Treatment of his myeloma had to be placed on hold and also evaluation of his bladder outlet obstruction and possible progression of prostate cancer were put on hold. The patient had previously been diagnosed as having prostate cancer at [facility] and was offered surgery which he declined. 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 She was treated for several years. He had received chemotherapy for myeloma since June 2013. He actually had been off chemotherapy for a prolonged period of time and recently his light chain disease began to worsen so we started him back on Velcade. I suspect that the patient's pancytopenia was related to the radioactive iodine dose at least in part. This is because the patient received the radioactive iodine dose on May 22 and it took an unusually long period of time, until June 03, for the patient to be taken off of isolation because his body remained radioactive for that length of time. We were supporting him with platelet transfusions, red cell transfusions and granulocyte colony-stimulating factor raises white count. He was extremely weak and prostrate for the last few days although on the day prior to his , he was still communicating with me. In addition, it did appear that the thyroid cancer had shrunk modestly. There was a metastatic lesion on his right neck. I was treating the patient aggressively with the supportive measures I have described. I did not expect his condition to deteriorate to the point that he would suddenly, but he was found this morning by nuclear medicine without vital signs. He had been relatively stable, although gravely ill, short period of time prior to that when the nurses had checked him. In my opinion, the cause of was multifactorial including metastatic thyroid cancer, light chain myeloma that was progressing, worsening renal failure, thrombocytopenia and leukopenia. In addition it could have been related to metastatic prostate cancer but we were unable to assess the patient because of the surprisingly prolonged interval between administration of the radioactive iodine and the time when it was safe to evaluate the patient further. Discharge Plan - Discharge Data Disposition: - Discharge Medications No Action Insulin Lispro [HumaLOG] 2 unit SUBCUT ACHS PRN PRN Reason: Glucose Management HYDROcodone/ACETAMIN 10-325 [[place] 10-325] 1 tablet PO Q4H PRN PRN Reason: Pain Tamsulosin [Flomax] 0.4 mg PO DAILY glyBURIDE [Diabeta] 10 mg PO BID W/MEALS Saxagliptin HCl/Metformin HCl [Kombiglyze Xr 2.5-1,000 mg Tab] 1 each PO BID W/MEALS Lisinopril/Hydrochlorothiazide [Lisinopril-Hctz 10-12.5 mg Tab] 1 each PO DAILY Levothyroxine Sodium 200 mcg PO DAILY Dexamethasone [Dexamethasone Tab] 4 mg PO DAILY PRN PRN Reason: chemo Calcium Carbonate/Vitamin D3 [Os-Natanael 500+D3 Caplet] 1 each PO DAILY Aspirin [Ecotrin] 81 mg PO DAILY Furosemide Tab [Lasix Tab] 20 mg PO DAILY #10 tablet - Follow Up or Referral - Forms/Instructions Exam - Constitutional Vitals: Period Temp Pulse Resp BP Sys/Sommer Pulse Ox Last 24 Hr 115 18-22 Discharge Results Procedures and tests throughout hospitalization: Pending Orders 06/05/16 04:00 Comp Blood Count Auto Diff IN AM Comprehensive Metabolic Panel IN AM LDH [Lactate Dehydrogenase] IN AM 06/06/16 04:00 Comp Blood Count Auto Diff IN AM Comprehensive Metabolic Panel IN AM Labs on day of discharge: Labs from last 24 hours 06/04/16 06/04/16 06/03/16 04:48 04:48 21:05 WBC 0.4 L* D RBC 2.74 L Hgb 8.3 L Hct 24.1 L MCV 88.0 MCH 30 MCHC 34.4 RDW 15.6 Plt Count 14 L* D MPV 9.9 Neut % (Auto) 20.5 L Lymph % (Auto) 51.3 [place] % (Auto) 15.4 H Eos % (Auto) 0.0 Baso % (Auto) 0.0 Neut # (Auto) 0.1 L Lymph # (Auto) 0.2 L [place] # (Auto) 0.1 L Eos # (Auto) 0.0 Baso # (Auto) 0.0 Total Counted 100 Immature Gran % 12.8 Nucleated RBC % 0.0 Immature Gran # 0.05 Band Neutrophils 10 Lymphocytes 90 H Nucleated RBCs # 0.00 Atypical Lymphocytes Few Platelet Estimate Decreased Hypochromasia 1+ Microcytosis Slight Ovalocytes Slight Morphology Comment Sodium 128 L Potassium 4.4 Chloride 93 L Carbon Dioxide 23 Anion Gap 16.4 H BUN 56 H Creatinine 3.60 H GFR Calculation 21 BUN/Creatinine Ratio 15.00 Glucose 126 H POC Glucose 187 H Calculated Osmolality 274.1 Calcium 6.1 L Total Bilirubin 1.10 H AST 47 H ALT 27 Alkaline Phosphatase 80 Lactate Dehydrogenase 279 H Total Protein 4.2 L Albumin 1.6 L Globulin 2.6 Albumin/Globulin Ratio 0.6 L 06/03/16 06/03/16 06/03/16 16:47 11:27 07:47 WBC RBC Hgb Hct MCV MCH MCHC RDW Plt Count MPV Neut % (Auto) Lymph % (Auto) [place] % (Auto) Eos % (Auto) Baso % (Auto) Neut # (Auto) Lymph # (Auto) [place] # (Auto) Eos # (Auto) Baso # (Auto) Total Counted Immature Gran % Nucleated RBC % Immature Gran # Band Neutrophils Lymphocytes Nucleated RBCs # Atypical Lymphocytes Platelet Estimate Hypochromasia Microcytosis Ovalocytes Morphology Comment Sodium Potassium Chloride Carbon Dioxide Anion Gap BUN Creatinine GFR Calculation BUN/Creatinine Ratio Glucose POC Glucose 178 H 224 H 239 H Calculated Osmolality Calcium Total Bilirubin AST ALT Alkaline Phosphatase Lactate Dehydrogenase Total Protein Albumin Globulin Albumin/Globulin Ratio DS: Provider Date of admission: 05/21/16 13:21 Primary care physician: DEANDRE Gunter Attending physician on admission: Wayne Ingram MD Consults: 05/22/16 13:57 Consult to Case Mgmt/Social Srvs [CONS] Routine Reason for Case Mgmt/Social Srvs: Discharge Planning Consult Comment: set up home O2 if indicated. 06/01/16 09:46 Consult to Physician [CONS] Routine Comment: Courtesy consult Friday Consulting Provider: Lam Romero Consulting Provider Notified: Yes When should Consulting Provider be notified: Now When should Consulting Provider be notified: Now Date Notified: 06/03/16 Discharging clinician: Wayne Ingram MD
== END 2016-06-04 06:39 | disposition expired | DRG 643 ==
LOC: N.EDINP 18:22 → N.ED 18:22 → N.4E 21:41
PROVIDERS: ADMIT Specialist; ATTEND Specialist